=== PATIENT | female | born 1995 | race Caucasian/White ===

== ENCOUNTER 2019-05-24 02:30 | Inpatient (IN) | payer BC ==
[2019-05-24] MEDS ORDERED: Albuterol/Ipratropium 3.0-0.5 MG/3 ML Neb Soln NEB ONE (02:40)
[2019-05-24] MEDS ORDERED: Acetaminophen 325 MG Tab PO ONE (02:40)
[2019-05-24] MEDS ORDERED: methylPREDNISolone Sodium Succinate 125 MG/2 ML SDV IVPUSH ONE (02:40)
--- NOTE | 2019-05-24 02:40 | EDM.PDOC ---
ED HPI GENERAL MEDICAL PROBLEM - General Stated Complaint: SHORTNESS OF BREATH Time Seen by Provider: 05/24/19 02:38 Source of Information: Reports: Patient History Limitations: Reports: No Limitations - History of Present Illness INITIAL COMMENTS - FREE TEXT/NARRATIVE: ED with c/o SOB, wheeze and body aches worsening throughout day. Hx asthma. Has been out of advair for one month, Attempting to get refeills and apptointment with her specialist and "not able" Frequent use of inhaler today, helped in am but worsened after going to bed. - Related Data Allergies Allergy/AdvReac Type Severity Reaction Status Date / Time escitalopram [From Lexapro] Allergy Hives Verified 05/24/19 03:14 environmental Allergy Severe Shortness Uncoded 05/24/19 03:14 of Breath Home Meds: Home Meds Albuterol [IJD: Albuterol] 2.5 mg NEB Q4HRRT nebule 11/23/15 [Rx] EPINEPHrine [Primatene Mist] 2 puff INH ASDIRECTED 05/24/19 [History] Past Medical History Respiratory History: Reports: Asthma Social & Family History - Family History Family Medical History: Unobtainable Respiratory: Reports: Asthma - Caffeine Use Caffeine Use: Reports: Coffee, Energy Drinks, Soda - Living Situation & Occupation Living situation: Reports: with Family Occupation: Employed ED ROS GENERAL - Review of Systems Review Of Systems: See Below Constitutional: Reports: Fever, Chills HEENT: Reports: Sinus Problem. Denies: Throat Pain Respiratory: Reports: Shortness of Breath, Wheezing, Cough Cardiovascular: Reports: No Symptoms GI/Abdominal: Reports: No Symptoms Musculoskeletal: Reports: No Symptoms Skin: Reports: No Symptoms Neurological: Reports: No Symptoms ED EXAM, GENERAL - Physical Exam Exam: See Below Exam Limited By: No Limitations General Appearance: Alert, Moderate Distress Eye Exam: Bilateral Eye: EOMI Ears: Normal External Exam Nose: Normal Mucosa Throat/Mouth: Normal Inspection, Normal Lips, Normal Voice Respiratory/Chest: Decreased Breath Sounds, Wheezing (bilateral inspiratory expiratory) Cardiovascular: Regular Rate, Rhythm, Tachycardia GI/Abdominal: Normal Bowel Sounds Extremities: Normal Inspection Neurological: Alert, Oriented, Normal Cognition Psychiatric: Normal Affect Skin Exam: Warm, Dry, Intact, Normal Color Course - Vital Signs Last Recorded V/S: Last Vital Signs Temp 102.5 F H 05/24/19 03:37 Pulse 157 H 05/24/19 03:37 Resp 18 05/24/19 03:37 BP 129/56 L 05/24/19 03:37 Pulse Ox 93 L 05/24/19 03:37 - Orders/Labs/Meds Orders: Active Orders 24 hr Category Date Time Status Admission Diagnosis [ADT] Stat ADT 05/24/19 03:37 Ordered Admission Status [Patient Status] [ADT] Routine ADT 05/24/19 03:37 Active Cardiac Monitoring [RC] . DIRECTED Care 05/24/19 03:37 Active RT Aerosol Therapy [RC] ASDIRECTED Care 05/24/19 02:41 Active RT Aerosol Therapy [RC] ASDIRECTED Care 05/24/19 03:15 Active RT Aerosol Therapy [RC] ASDIRECTED Care 05/24/19 03:18 Active CULTURE BLOOD [BC] Stat Lab 05/24/19 02:45 Received Oseltamivir [Tamiflu] Med 05/24/19 03:46 Once 75 mg PO ONETIME ONE Potassium Chloride [KCl 10 MEQ in Water 100 ML] 10 meq Med 05/24/19 03:18 Active Premix Bag 1 bag IV ONETIME Sodium Chloride 0.9% [Normal Saline] 1,000 ml Med 05/24/19 03:18 Active IV .BOLUS Blood Culture x2 Reflex Set [OM.PC] Stat Oth 05/24/19 02:41 Ordered Medication Orders Potassium Chloride 10 meq/ (Premix) 100 mls @ 100 mls/hr IV ONETIME ONE Stop: 05/24/19 04:17 Last Admin: 05/24/19 03:28 Dose: 100 mls/hr Sodium Chloride (Normal Saline) 1,000 mls @ 125 mls/hr IV .BOLUS ONE Stop: 05/24/19 11:17 Last Admin: 05/24/19 03:35 Dose: 125 mls/hr Oseltamivir Phosphate (Tamiflu) 75 mg PO ONETIME ONE Stop: 05/24/19 03:47 Labs: Laboratory Tests 05/24/19 05/24/19 05/24/19 Range/Units 02:45 02:45 02:45 WBC 7.8 (5.0-10.0) 10^3/uL RBC 4.64 (4.2-5.4) 10^6/uL Hgb 14.2 (12.0-16.0) g/dL Hct 40.8 (37.0-47.0) % MCV 87.9 D (80-100) fL MCH 30.6 (27.0-34.0) pg MCHC 34.8 (33.0-35.0) g/dL Plt Count 224 (150-450) 10^3/uL Neut % (Auto) 86.4 H (42.2-75.2) % Lymph % (Auto) 6.6 L (20.5-50.1) % [place] % (Auto) 6.3 (2-8) % Eos % (Auto) 0.6 L (1.0-3.0) % Baso % (Auto) 0.1 (0.0-1.0) % Sodium 136 (135-145) mmol/L Potassium 3.2 L (3.6-5.0) mmol/L Chloride 102 (101-111) mmol/L Carbon Dioxide 23.0 (21.0-31.0) mmol/L Anion Gap 14.2 BUN 8 (7-18) mg/dL Creatinine 0.8 (0.6-1.3) mg/dL Est Cr Clr Drug Dosing 98.41 mL/min Estimated GFR (MDRD) > 60 BUN/Creatinine Ratio 10.00 Glucose 94 (74-105) mg/dL Lactic Acid 1.5 (0.5-2.2) mmol/L Calcium 9.1 (8.4-10.2) mg/dl Total Bilirubin 0.3 (0.2-1.0) mg/dL AST 58 H (10-42) IU/L ALT 70 H (10-60) IU/L Alkaline Phosphatase 65 (42-121) IU/L C-Reactive Protein (0.0-1.3) mg/dL Total Protein 7.4 (6.7-8.2) g/dl Albumin 4.4 (3.2-5.5) g/dl Globulin 3.0 Albumin/Globulin Ratio 1.47 HCG, Qual Negative 05/24/19 Range/Units 02:45 WBC (5.0-10.0) 10^3/uL RBC (4.2-5.4) 10^6/uL Hgb (12.0-16.0) g/dL Hct (37.0-47.0) % MCV (80-100) fL MCH (27.0-34.0) pg MCHC (33.0-35.0) g/dL Plt Count (150-450) 10^3/uL Neut % (Auto) (42.2-75.2) % Lymph % (Auto) (20.5-50.1) % [place] % (Auto) (2-8) % Eos % (Auto) (1.0-3.0) % Baso % (Auto) (0.0-1.0) % Sodium (135-145) mmol/L Potassium (3.6-5.0) mmol/L Chloride (101-111) mmol/L Carbon Dioxide (21.0-31.0) mmol/L Anion Gap BUN (7-18) mg/dL Creatinine (0.6-1.3) mg/dL Est Cr Clr Drug Dosing mL/min Estimated GFR (MDRD) BUN/Creatinine Ratio Glucose (74-105) mg/dL Lactic Acid (0.5-2.2) mmol/L Calcium (8.4-10.2) mg/dl Total Bilirubin (0.2-1.0) mg/dL AST (10-42) IU/L ALT (10-60) IU/L Alkaline Phosphatase (42-121) IU/L C-Reactive Protein 1.0 (0.0-1.3) mg/dL Total Protein (6.7-8.2) g/dl Albumin (3.2-5.5) g/dl Globulin Albumin/Globulin Ratio HCG, Qual Meds: Medications Generic Name Dose Route Start Last Admin Trade Name Freq PRN Reason Stop Dose Admin Potassium Chloride 10 meq/ 100 mls @ 100 mls/hr 05/24/19 03:18 05/24/19 03:28 Premix IV 05/24/19 04:17 100 mls/hr ONETIME ONE Administration Sodium Chloride 1,000 mls @ 125 mls/hr 05/24/19 03:18 05/24/19 03:35 Normal Saline IV 05/24/19 11:17 125 mls/hr .BOLUS ONE Administration Oseltamivir Phosphate 75 mg 05/24/19 03:46 Tamiflu PO 05/24/19 03:47 ONETIME ONE Discontinued Medications Generic Name Dose Route Start Last Admin Trade Name Freq PRN Reason Stop Dose Admin Acetaminophen 650 mg 05/24/19 02:40 05/24/19 02:49 Tylenol PO 05/24/19 02:41 650 mg NOW ONE Administration Albuterol 0.63 mg 05/24/19 03:15 05/24/19 03:26 Proventil Neb Soln NEB 05/24/19 03:16 Not Given ONETIME ONE Albuterol 2.5 mg 05/24/19 03:18 05/24/19 03:26 Proventil Neb Soln NEB 05/24/19 03:19 2.5 mg ONETIME ONE Administration Albuterol/Ipratropium 3 ml 05/24/19 02:40 05/24/19 02:47 Duoneb 3.0-0.5 Mg/3 Ml NEB 05/24/19 02:41 3 ml ONETIME ONE Administration Methylprednisolone Sodium Succinate 125 mg 05/24/19 02:40 05/24/19 02:47 Solu-Medrol IVPUSH 05/24/19 02:41 125 mg ONETIME ONE Administration - Re-Assessments/Exams Free Text/Narrative Re-Assessment/Exam: 05/24/19 03:36 Mild relief following initial neb, Required O2/NC to maintain sats greater than 92. Repeat Albuterol neb. TC Dr Claire accepting patient for admission. Departure - Departure Time of Disposition: 03:39 Disposition: Admitted As Inpatient 66 Condition: Good Clinical Impression: Hypoxemia, Influenza B Acute asthma exacerbation Qualifiers: Asthma severity: mild intermittent Qualified Code(s): J45.21 - Mild intermittent asthma with (acute) exacerbation - Discharge Information Forms: ED Department Discharge - My Orders Last 24 Hours: My Active Orders 05/24/19 02:41 RT Aerosol Therapy [RC] ASDIRECTED Blood Culture x2 Reflex Set [OM.PC] Stat 05/24/19 02:45 CULTURE BLOOD [BC] Stat 05/24/19 03:15 RT Aerosol Therapy [RC] ASDIRECTED 05/24/19 03:18 RT Aerosol Therapy [RC] ASDIRECTED Potassium Chloride [KCl 10 MEQ in Water 100 ML] 10 meq Premix Bag 1 bag IV ONETIME Sodium Chloride 0.9% [Normal Saline] 1,000 ml IV .BOLUS 05/24/19 03:37 Admission Diagnosis [ADT] Stat Admission Status [Patient Status] [ADT] Routine Cardiac Monitoring [RC] . DIRECTED 05/24/19 03:46 Oseltamivir [Tamiflu] 75 mg PO ONETIME ONE - Assessment/Plan Last 24 Hours: My Active Orders 05/24/19 02:41 RT Aerosol Therapy [RC] ASDIRECTED Blood Culture x2 Reflex Set [OM.PC] Stat 05/24/19 02:45 CULTURE BLOOD [BC] Stat 05/24/19 03:15 RT Aerosol Therapy [RC] ASDIRECTED 05/24/19 03:18 RT Aerosol Therapy [RC] ASDIRECTED Potassium Chloride [KCl 10 MEQ in Water 100 ML] 10 meq Premix Bag 1 bag IV ONETIME Sodium Chloride 0.9% [Normal Saline] 1,000 ml IV .BOLUS 05/24/19 03:37 Admission Diagnosis [ADT] Stat Admission Status [Patient Status] [ADT] Routine Cardiac Monitoring [RC] . DIRECTED 05/24/19 03:46 Oseltamivir [Tamiflu] 75 mg PO ONETIME ONE
[2019-05-24 03:11] LABS: ANION GAP 14.2; CHLORIDE,CL 102 mmol/L (101-111); SODIUM,NA 136 mmol/L (135-145)
[2019-05-24] MEDS ORDERED: Albuterol 0.021% 0.63 MG/3 ML Neb Soln NEB ONE (03:15)
[2019-05-24] MEDS ORDERED: Sodium Chloride 0.9% 1,000 ML IV ONE (03:18)
[2019-05-24] MEDS ORDERED: Potassium Chloride 10 MEQ in Premix Bag 1 BAG IV ONE (03:18)
[2019-05-24] MEDS ORDERED: Albuterol 0.083% 2.5 MG/3 ML Neb Soln NEB ONE (03:18)
[2019-05-24] MEDS ORDERED: Oseltamivir 75 MG Cap PO ONE (03:46)
[2019-05-24] MEDS ORDERED: Oseltamivir 75 MG Cap ONE (03:52)
[2019-05-24] MEDS ORDERED: Albuterol/Ipratropium 3.0-0.5 MG/3 ML Neb Soln NEB PRN (04:41)
[2019-05-24] MEDS ORDERED: Sodium Chloride 0.9% 10 ML Syringe FLUSH PRN (04:43)
[2019-05-24] MEDS ORDERED: Ondansetron 4 MG Tab.DIS PO PRN (04:43)
--- NOTE | 2019-05-24 04:52 | PCM.HP ---
H&P History of Present Illness - General Date of Service: 05/24/19 Admit Problem/Dx: Admission Diagnosis/Problem Admission Diagnosis/Problem Asthma with acute exacerbation Source of Information: Patient - History of Present Illness Initial Comments - Free Text/Narative: 23-year-old with a history of asthma. The patient ran out of medications about a month ago. She used to use Advair and nebulizers. She says she only used [id number] epinephrine inhaler as needed. Has had exposure to a friend with influenza. On the day of admission developed dry cough, increasing shortness of breath at that the inhalers did not control. Noted to have fever of 103 No rash, no abdominal pain, no leg swelling. Came into the emergency room and she was noted to have significant wheezing. Was treated with aspirin, nebulizers, steroids. She is feeling much better. - Related Data Allergies/Adverse Reactions: Allergies Allergy/AdvReac Type Severity Reaction Status Date / Time escitalopram [From Lexapro] Allergy Hives Verified 05/24/19 03:14 environmental Allergy Severe Shortness Uncoded 05/24/19 03:14 of Breath Home Medications: Home Meds Albuterol [IJD: Albuterol] 2.5 mg NEB Q4HRRT nebule 11/23/15 [Rx] EPINEPHrine [Primatene Mist] 2 puff INH ASDIRECTED 05/24/19 [History] Past Medical History Respiratory History: Reports: Asthma Other Musculoskeletal History: fx ankle. Psychiatric History: Reports: Anxiety, Depression, Panic Attack - Infectious Disease History Infectious Disease History: Reports: Influenza Social & Family History - Family History Family Medical History: Unobtainable Respiratory: Reports: Asthma, Other (See Below) GI: Reports: None Musculoskeletal: Reports: None Neurological: Reports: None Endocrine/Metabolic: Reports: None Hematologic: Reports: None Immunologic: Reports: None Oncologic: Reports: None - Tobacco Use Smoking Status *Q: Never Smoker Second Hand Smoke Exposure: No - Caffeine Use Caffeine Use: Reports: Coffee, Soda - Recreational Drug Use Recreational Drug Use: No - Living Situation & Occupation Living situation: Reports: with Family Occupation: Employed H&P Review of Systems - Review of Systems: Review Of Systems: See Below General: Reports: Fever, Chills Pulmonary: Reports: Shortness of Breath, Wheezing. Denies: Sputum Cardiovascular: Denies: Chest Pain, Edema Gastrointestinal: Denies: Abdominal Pain Genitourinary: Denies: Dysuria Psychiatric: Denies: Confusion Neurological: Denies: Headache, Seizure, Syncope Exam - Exam Exam: See Below - Vital Signs Vital Signs: Last Vital Signs Temp 38.2 C H 05/24/19 04:32 Pulse 141 H 05/24/19 04:32 Resp 24 H 05/24/19 04:32 BP 120/52 L 05/24/19 04:32 Pulse Ox 94 L 05/24/19 04:32 Weight: 84.187 kg - Exam Quality Assessment: Supplemental Oxygen General: Alert, Oriented Neck: Supple Lungs: Wheezing Cardiovascular: Regular Rate, Regular Rhythm GI/Abdominal Exam: Normal Bowel Sounds, Soft, Non-Tender Extremities: No Pedal Edema Skin: Warm, Dry Neurological: Cranial Nerves Intact Neuro Extensive - Mental Status: Alert, Oriented x3, Normal Mood/Affect - Patient Data Lab Results Last 24 hrs: Laboratory Results - last 24 hr 05/24/19 05/24/19 05/24/19 Range/Units 02:45 02:45 02:45 WBC 7.8 (5.0-10.0) 10^3/uL RBC 4.64 (4.2-5.4) 10^6/uL Hgb 14.2 (12.0-16.0) g/dL Hct 40.8 (37.0-47.0) % MCV 87.9 D (80-100) fL MCH 30.6 (27.0-34.0) pg MCHC 34.8 (33.0-35.0) g/dL Plt Count 224 (150-450) 10^3/uL Neut % (Auto) 86.4 H (42.2-75.2) % Lymph % (Auto) 6.6 L (20.5-50.1) % [place] % (Auto) 6.3 (2-8) % Eos % (Auto) 0.6 L (1.0-3.0) % Baso % (Auto) 0.1 (0.0-1.0) % Sodium 136 (135-145) mmol/L Potassium 3.2 L (3.6-5.0) mmol/L Chloride 102 (101-111) mmol/L Carbon Dioxide 23.0 (21.0-31.0) mmol/L Anion Gap 14.2 BUN 8 (7-18) mg/dL Creatinine 0.8 (0.6-1.3) mg/dL Est Cr Clr Drug Dosing 98.41 mL/min Estimated GFR (MDRD) > 60 BUN/Creatinine Ratio 10.00 Glucose 94 (74-105) mg/dL Lactic Acid 1.5 (0.5-2.2) mmol/L Calcium 9.1 (8.4-10.2) mg/dl Total Bilirubin 0.3 (0.2-1.0) mg/dL AST 58 H (10-42) IU/L ALT 70 H (10-60) IU/L Alkaline Phosphatase 65 (42-121) IU/L C-Reactive Protein (0.0-1.3) mg/dL Total Protein 7.4 (6.7-8.2) g/dl Albumin 4.4 (3.2-5.5) g/dl Globulin 3.0 Albumin/Globulin Ratio 1.47 HCG, Qual Negative 05/24/19 Range/Units 02:45 WBC (5.0-10.0) 10^3/uL RBC (4.2-5.4) 10^6/uL Hgb (12.0-16.0) g/dL Hct (37.0-47.0) % MCV (80-100) fL MCH (27.0-34.0) pg MCHC (33.0-35.0) g/dL Plt Count (150-450) 10^3/uL Neut % (Auto) (42.2-75.2) % Lymph % (Auto) (20.5-50.1) % [place] % (Auto) (2-8) % Eos % (Auto) (1.0-3.0) % Baso % (Auto) (0.0-1.0) % Sodium (135-145) mmol/L Potassium (3.6-5.0) mmol/L Chloride (101-111) mmol/L Carbon Dioxide (21.0-31.0) mmol/L Anion Gap BUN (7-18) mg/dL Creatinine (0.6-1.3) mg/dL Est Cr Clr Drug Dosing mL/min Estimated GFR (MDRD) BUN/Creatinine Ratio Glucose (74-105) mg/dL Lactic Acid (0.5-2.2) mmol/L Calcium (8.4-10.2) mg/dl Total Bilirubin (0.2-1.0) mg/dL AST (10-42) IU/L ALT (10-60) IU/L Alkaline Phosphatase (42-121) IU/L C-Reactive Protein 1.0 (0.0-1.3) mg/dL Total Protein (6.7-8.2) g/dl Albumin (3.2-5.5) g/dl Globulin Albumin/Globulin Ratio HCG, Qual Result Diagrams: 05/24/19 02:45 05/24/19 02:45 Yan Results Last 24 hrs: Microbiology 05/24/19 02:45 Influenza Type A Antigen Screen - Final Nasal, Left NEGATIVE INFLUENZA A VIRUS AG REFERENCE RANGE: NEGATIVE Influenza Type B Antigen Screen - Final Positive Influenza B Ag - Problem List (1) Hypokalemia SNOMED Code(s): 13070452 ICD Code: E87.6 - HYPOKALEMIA Status: Acute Current Visit: Yes (2) Acute asthma exacerbation SNOMED Code(s): 479999201 ICD Code: J45.901 - UNSPECIFIED ASTHMA WITH (ACUTE) EXACERBATION Status: Acute Priority: High Current Visit: No Qualifiers: Asthma severity: mild intermittent Qualified Code(s): J45.21 - Mild intermittent asthma with (acute) exacerbation (3) Influenza B SNOMED Code(s): 06266023 ICD Code: J10.1 - FLU DUE TO OTH IDENT INFLUENZA VIRUS W OTH RESP MANIFEST Status: Acute Current Visit: No Problem List Initiated/Reviewed/Updated: Yes Orders Last 24hrs: Active Orders 24 hr Category Date Time Status Admission Diagnosis [ADT] Stat ADT 05/24/19 03:37 Ordered Admission Status [Patient Status] [ADT] Routine ADT 05/24/19 03:37 Active Antiembolic Devices [RC] PER UNIT ROUTINE Care 05/24/19 04:44 Active Oxygen Therapy [RC] PRN Care 05/24/19 04:43 Active Peripheral IV Care [RC] . DIRECTED Care 05/24/19 04:44 Active RT Aerosol Therapy [RC] 01,07,13,18 Care 05/24/19 04:41 Active Up With Assistance [RC] ASDIRECTED Care 05/24/19 04:43 Active VTE/DVT Education [RC] PER UNIT ROUTINE Care 05/24/19 04:43 Active Vital Signs [RC] Q4H Care 05/24/19 04:43 Active Regular Diet [DIET] Diet 05/24/19 Breakfast Active BASIC METABOLIC PANEL,BMP [CHEM] AM Lab 05/25/19 05:15 Ordered CBC WITH AUTO DIFF [HEME] AM Lab 05/25/19 05:15 Ordered CULTURE BLOOD [BC] Stat Lab 05/24/19 02:45 Received CULTURE SPUTUM + SMEAR [RM] Routine Lab 05/24/19 04:41 Ordered Acetaminophen [Tylenol] Med 05/24/19 04:43 Ordered 650 mg PO Q4H PRN Albuterol/Ipratropium [DuoNeb 3.0-0.5 MG/3 ML] Med 05/24/19 04:41 Ordered 3 ml NEB Q2H PRN Albuterol/Ipratropium [DuoNeb 3.0-0.5 MG/3 ML] Med 05/24/19 07:00 Ordered 3 ml NEB Q6HRRT Budesonide [Pulmicort] Med 05/24/19 07:00 Ordered 0.5 mg NEB BIDRT Heparin Sodium Med 05/24/19 06:00 Ordered 5,000 units SUBCUT Q8HR Ondansetron [Zofran ODT] Med 05/24/19 04:43 Ordered 4 mg PO Q4H PRN Oseltamivir [Tamiflu] Med 05/24/19 09:00 Ordered 75 mg PO BID Potassium Chloride [Klor-Con 10] Med 05/24/19 10:00 Once 40 meq PO ONETIME ONE Sodium Chloride 0.9% [Normal Saline] 1,000 ml Med 05/24/19 03:18 Active IV .BOLUS Sodium Chloride 0.9% [Saline Flush] Med 05/24/19 04:43 Ordered 10 ml FLUSH ASDIRECTED PRN Sodium Chloride 0.9% with KCl 20 mEq @ 125 mL/Hr (1000 Med 05/24/19 05:00 Ordered mL) NS + KCl 20mEq/L [Normal Saline with 20 mEq KCl] 1,000 ml IV ASDIRECTED Zolpidem [Ambien] Med 05/24/19 04:43 Ordered 5 mg PO BEDTIME PRN methylPREDNISolone Sod Succ [Solu-MEDROL] Med 05/24/19 04:45 Ordered 40 mg IVPUSH Q8H Antiembolic Hose [OM.PC] Per Unit Routine Oth 05/24/19 04:43 Ordered Blood Culture x2 Reflex Set [OM.PC] Stat Oth 05/24/19 02:41 Ordered Peripheral IV Insertion Adult [OM.PC] Routine Oth 05/24/19 04:43 Ordered Resuscitation Status Routine Resus Stat 05/24/19 04:43 Ordered Medication Orders Acetaminophen (Tylenol) 650 mg PO Q4H PRN PRN Reason: Pain (Mild 1-3)/fever Albuterol/Ipratropium (Duoneb 3.0-0.5 Mg/3 Ml) 3 ml NEB Q6HRRT MILLICENT Albuterol/Ipratropium (Duoneb 3.0-0.5 Mg/3 Ml) 3 ml NEB Q2H PRN PRN Reason: sob Budesonide (Pulmicort) 0.5 mg NEB BIDRT MILLICENT Heparin Sodium (Porcine) (Heparin Sodium) 5,000 units SUBCUT Q8HR MILLICENT Sodium Chloride (Normal Saline) 1,000 mls @ 125 mls/hr IV .BOLUS ONE Stop: 05/24/19 11:17 Last Admin: 05/24/19 03:35 Dose: 125 mls/hr Potassium Chloride/Sodium Chloride (Normal Saline With 20 Meq Kcl) 1,000 mls @ 125 mls/hr IV ASDIRECTED MILLICENT Methylprednisolone Sodium Succinate (Solu-Medrol) 40 mg IVPUSH Q8H MILLICENT Ondansetron HCl (Zofran Odt) 4 mg PO Q4H PRN PRN Reason: nausea, able to take PO Oseltamivir Phosphate (Tamiflu) 75 mg PO BID MILLICENT Potassium Chloride (Klor-Con 10) 40 meq PO ONETIME ONE Stop: 05/24/19 10:01 Sodium Chloride (Saline Flush) 10 ml FLUSH ASDIRECTED PRN PRN Reason: Keep Vein Open Zolpidem Tartrate (Ambien) 5 mg PO BEDTIME PRN PRN Reason: Sleep Assessment/Plan Comment:: 23-year-old lady with a history of asthma who ran out of her medications. Had influenza exposure Presented with shortness of breath Acute asthma exacerbation We will treat with IV and inhaled steroids Use scheduled and as needed DuoNeb Acute influenza Start Tamiflu We'll give influenza vaccine on discharge Hypokalemia We'll replace and recheck DVT prophylaxis with subcutaneous heparin
[2019-05-24] MEDS: NS + KCl 20mEq/L 1,000 ML IV SCH ×3 (05:15→21:40)
[2019-05-24] MEDS: Heparin Sodium 5,000 Units/ML Vial SUBCUT SCH ×3 (06:16→21:45)
[2019-05-24] MEDS: methylPREDNISolone Sodium Succinate 40 MG/1 ML SDV IVPUSH SCH ×3 (06:18→21:39)
[2019-05-24] MEDS: Albuterol/Ipratropium 3.0-0.5 MG/3 ML Neb Soln NEB SCH ×3 (07:11→17:44)
[2019-05-24] MEDS: Budesonide 0.5 MG/2 ML Neb Susp NEB SCH ×2 (07:13→17:45)
[2019-05-24] MEDS ORDERED: Potassium Chloride 10 MEQ Tab.ER PO ONE (10:00)
[2019-05-24] MEDS: Acetaminophen 325 MG Tab PO PRN (15:15)
[2019-05-24] MEDS: Oseltamivir 75 MG Cap PO SCH (21:37)
[2019-05-24] MEDS: Zolpidem 5 MG Tab PO PRN (22:38)
[2019-05-25] MEDS: Albuterol/Ipratropium 3.0-0.5 MG/3 ML Neb Soln NEB SCH ×4 (00:15→20:34)
[2019-05-25] MEDS: Acetaminophen 325 MG Tab PO PRN ×2 (00:16→15:14)
[2019-05-25] MEDS: methylPREDNISolone Sodium Succinate 40 MG/1 ML SDV IVPUSH SCH ×3 (05:48→21:46)
[2019-05-25] MEDS: Heparin Sodium 5,000 Units/ML Vial SUBCUT SCH ×3 (05:48→21:46)
[2019-05-25] MEDS: NS + KCl 20mEq/L 1,000 ML IV SCH (05:49)
[2019-05-25 06:56] LABS: ANION GAP 13.4; CHLORIDE,CL 108 mmol/L (101-111); SODIUM,NA 137 mmol/L (135-145)
[2019-05-25] MEDS: Budesonide 0.5 MG/2 ML Neb Susp NEB SCH ×2 (07:25→20:34)
[2019-05-25] MEDS: Oseltamivir 75 MG Cap PO SCH ×2 (09:20→20:33)
--- NOTE | 2019-05-25 10:24 | PCM.PN ---
- General Info Date of Service: 05/25/19 Admission Dx/Problem (Free Text): Admission Diagnosis/Problem Admission Diagnosis/Problem Asthma with acute exacerbation Subjective Update: Shortness of breath is improved. Has episodes of tachycardia after nebulizer, but somewhat jittery. Still on nasal cannula oxygen. She was on 1 L overnight. Continues to have cough, stuffy nose. No diarrhea. No abdominal pain. On and off fever Functional Status: Reports: Pain Controlled - Review of Systems General: Reports: Fever, Weakness Pulmonary: Reports: Shortness of Breath Cardiovascular: Denies: Chest Pain Gastrointestinal: Denies: Abdominal Pain Genitourinary: Denies: Dysuria - Patient Data Vitals - Most Recent: Last Vital Signs Temp 36.9 C 05/25/19 07:46 Pulse 104 H 05/25/19 07:46 Resp 20 05/25/19 07:46 BP 133/82 05/25/19 07:46 Pulse Ox 98 05/25/19 07:46 Weight - Most Recent: 84.187 kg I&O - Last 24 Hours: Intake & Output 05/24/19 05/25/19 05/25/19 22:59 06:59 14:59 Intake Total 1174 1600 460 Output Total 600 500 Balance 1174 1000 -40 Lab Results Last 24 Hours: Laboratory Results - last 24 hr 05/25/19 05/25/19 Range/Units 06:10 06:10 WBC 7.3 (5.0-10.0) 10^3/uL RBC 4.29 (4.2-5.4) 10^6/uL Hgb 12.9 (12.0-16.0) g/dL Hct 38.5 (37.0-47.0) % MCV 89.7 (80-100) fL MCH 30.1 (27.0-34.0) pg MCHC 33.5 (33.0-35.0) g/dL Plt Count 241 (150-450) 10^3/uL Neut % (Auto) 83.5 H (42.2-75.2) % Lymph % (Auto) 7.4 L (20.5-50.1) % [place] % (Auto) 9.0 H (2-8) % Eos % (Auto) 0.0 L (1.0-3.0) % Baso % (Auto) 0.1 (0.0-1.0) % Sodium 137 (135-145) mmol/L Potassium 4.4 (3.6-5.0) mmol/L Chloride 108 (101-111) mmol/L Carbon Dioxide 20.0 L (21.0-31.0) mmol/L Anion Gap 13.4 BUN 8 (7-18) mg/dL Creatinine 0.8 (0.6-1.3) mg/dL Est Cr Clr Drug Dosing 98.41 mL/min Estimated GFR (MDRD) > 60 Glucose 125 H (74-105) mg/dL Calcium 8.9 (8.4-10.2) mg/dl Yan Results Last 24 Hours: Microbiology 05/24/19 02:45 Aerobic Blood Culture - Preliminary Blood - Venous NO GROWTH AFTER 1 DAY Anaerobic Blood Culture - Preliminary NO GROWTH AFTER 1 DAY 05/25/19 00:29 Gram Stain - Final Sputum - Expectorated Med Orders - Current: Current Medications Acetaminophen (Tylenol) 650 mg PO Q4H PRN PRN Reason: Pain (Mild 1-3)/fever Last Admin: 05/25/19 00:16 Dose: 650 mg Albuterol/Ipratropium (Duoneb 3.0-0.5 Mg/3 Ml) 3 ml NEB Q2H PRN PRN Reason: sob Budesonide (Pulmicort) 0.5 mg NEB BIDRT [facility] Last Admin: 05/25/19 07:25 Dose: 0.5 mg Heparin Sodium (Porcine) (Heparin Sodium) 5,000 units SUBCUT Q8HR [facility] Last Admin: 05/25/19 05:48 Dose: 5,000 units Influenza Virus Vaccine (Afluria Quad 2018- (3yr Up)) 60 mcg IM .ONCE ONE Stop: 05/24/19 09:16 Methylprednisolone Sodium Succinate (Solu-Medrol) 40 mg IVPUSH Q8H [facility] Last Admin: 05/25/19 05:48 Dose: 40 mg Ondansetron HCl (Zofran Odt) 4 mg PO Q4H PRN PRN Reason: nausea, able to take PO Oseltamivir Phosphate (Tamiflu) 75 mg PO BID [facility] Last Admin: 05/25/19 09:20 Dose: 75 mg Sodium Chloride (Saline Flush) 10 ml FLUSH ASDIRECTED PRN PRN Reason: Keep Vein Open Zolpidem Tartrate (Ambien) 5 mg PO BEDTIME PRN PRN Reason: Sleep Last Admin: 05/24/19 22:38 Dose: 5 mg Discontinued Medications Acetaminophen (Tylenol) 650 mg PO NOW ONE Stop: 05/24/19 02:41 Last Admin: 05/24/19 02:49 Dose: 650 mg Albuterol (Proventil Neb Soln) 0.63 mg NEB ONETIME ONE Stop: 05/24/19 03:16 Last Admin: 05/24/19 03:26 Dose: Not Given Albuterol (Proventil Neb Soln) 2.5 mg NEB ONETIME ONE Stop: 05/24/19 03:19 Last Admin: 05/24/19 03:26 Dose: 2.5 mg Albuterol/Ipratropium (Duoneb 3.0-0.5 Mg/3 Ml) 3 ml NEB ONETIME ONE Stop: 05/24/19 02:41 Last Admin: 05/24/19 02:47 Dose: 3 ml Albuterol/Ipratropium (Duoneb 3.0-0.5 Mg/3 Ml) 3 ml NEB Q6HRRT [facility] Last Admin: 05/25/19 07:26 Dose: 3 ml Potassium Chloride 10 meq/ (Premix) 100 mls @ 100 mls/hr IV ONETIME ONE Stop: 05/24/19 04:17 Last Infusion: 05/24/19 04:36 Dose: Infused Sodium Chloride (Normal Saline) 1,000 mls @ 125 mls/hr IV .BOLUS ONE Stop: 05/24/19 11:17 Last Admin: 05/24/19 03:35 Dose: 125 mls/hr Potassium Chloride/Sodium Chloride (Normal Saline With 20 Meq Kcl) 1,000 mls @ 125 mls/hr IV ASDIRECTED [facility] Last Infusion: 05/25/19 10:21 Dose: Infused Influenza Virus Vaccine (Pharmacy To Dose - Influenza Vaccine) 1 each IM ONETIME ONE Stop: 05/24/19 05:01 Methylprednisolone Sodium Succinate (Solu-Medrol) 125 mg IVPUSH ONETIME ONE Stop: 05/24/19 02:41 Last Admin: 05/24/19 02:47 Dose: 125 mg Oseltamivir Phosphate (Tamiflu) 75 mg PO ONETIME ONE Stop: 05/24/19 03:47 Last Admin: 05/24/19 03:50 Dose: 75 mg Oseltamivir Phosphate (Tamiflu) Confirm Administered Dose 75 mg .ROUTE .STK-MED ONE Stop: 05/24/19 03:53 Last Admin: 05/24/19 04:03 Dose: Not Given Potassium Chloride (Klor-Con 10) 40 meq PO ONETIME ONE Stop: 05/24/19 10:01 Last Admin: 05/24/19 09:46 Dose: 40 meq - Exam General: Alert, Oriented Neck: Supple Lungs: Wheezing (Mild bilateral) Cardiovascular: Regular Rate, Regular Rhythm GI/Abdominal Exam: Normal Bowel Sounds, Soft, Non-Tender Extremities: No Pedal Edema - Problem List & Annotations (1) Hypokalemia SNOMED Code(s): 14196770 Code(s): E87.6 - HYPOKALEMIA Status: Acute Current Visit: Yes (2) Acute asthma exacerbation SNOMED Code(s): 242441254 Code(s): J45.901 - UNSPECIFIED ASTHMA WITH (ACUTE) EXACERBATION Status: Acute Priority: High Current Visit: No Qualifiers: Asthma severity: mild intermittent Qualified Code(s): J45.21 - Mild intermittent asthma with (acute) exacerbation (3) Influenza B SNOMED Code(s): 82134070 Code(s): J10.1 - FLU DUE TO OTH IDENT INFLUENZA VIRUS W OTH RESP MANIFEST Status: Acute Current Visit: No - Problem List Review Problem List Initiated/Reviewed/Updated: No - My Orders Last 24 Hours: My Active Orders 05/24/19 21:00 Oseltamivir [Tamiflu] 75 mg PO BID 05/25/19 00:29 CULTURE SPUTUM + SMEAR [RM] Routine 05/25/19 14:00 Albuterol/Ipratropium [DuoNeb 3.0-0.5 MG/3 ML] 3 ml NEB TID - Plan Plan:: 23-year-old lady with a history of asthma who ran out of her medications. Had influenza exposure Presented with shortness of breath Acute asthma exacerbation improving We will treat with IV and inhaled steroids cut back on scheduled duoneb cont as needed DuoNeb Acute influenza Started Tamiflu stop IVF We'll give influenza vaccine on discharge Hypokalemia resolved DVT prophylaxis with subcutaneous heparin
[2019-05-25] MEDS: guaiFENesin 100 MG/5 ML Soln 5 ML UD Cup PO PRN ×2 (10:59→17:11)
[2019-05-25] MEDS: Zolpidem 5 MG Tab PO PRN (23:16)
[2019-05-26] MEDS: methylPREDNISolone Sodium Succinate 40 MG/1 ML SDV IVPUSH SCH ×3 (06:14→22:09)
[2019-05-26] MEDS: Heparin Sodium 5,000 Units/ML Vial SUBCUT SCH ×3 (06:16→22:09)
[2019-05-26] MEDS: guaiFENesin 100 MG/5 ML Soln 5 ML UD Cup PO PRN ×2 (06:20→14:54)
[2019-05-26] MEDS: Budesonide 0.5 MG/2 ML Neb Susp NEB SCH ×2 (07:25→20:38)
[2019-05-26] MEDS: Albuterol/Ipratropium 3.0-0.5 MG/3 ML Neb Soln NEB SCH ×3 (07:26→20:37)
[2019-05-26] MEDS: Oseltamivir 75 MG Cap PO SCH ×2 (08:48→20:37)
--- NOTE | 2019-05-26 11:58 | PCM.PN ---
- General Info Date of Service: 05/26/19 Admission Dx/Problem (Free Text): Admission Diagnosis/Problem Admission Diagnosis/Problem Asthma with acute exacerbation Subjective Update: Shortness of breath is improved. Still on nasal cannula oxygen on 1 L/min. Continues to have cough, stuffy nose, wheezing no fever improvement in body aches No diarrhea. No abdominal pain. - Review of Systems General: Reports: Weakness. Denies: Fever Pulmonary: Reports: Shortness of Breath, Wheezing Cardiovascular: Denies: Chest Pain Gastrointestinal: Denies: Abdominal Pain Neurological: Denies: Confusion - Patient Data Vitals - Most Recent: Last Vital Signs Temp 36.5 C 05/26/19 08:00 Pulse 116 H 05/26/19 08:00 Resp 20 05/26/19 08:00 BP 122/75 05/26/19 08:00 Pulse Ox 93 L 05/26/19 08:00 Weight - Most Recent: 84.187 kg I&O - Last 24 Hours: Intake & Output 05/25/19 05/26/19 05/26/19 22:59 06:59 14:59 Intake Total 540 375 0 Output Total 500 600 Balance 40 -225 0 Yan Results Last 24 Hours: Microbiology 05/25/19 00:29 Gram Stain - Final Sputum - Expectorated Sputum Culture - Preliminary NORMAL RESPIRATORY SLY 1 DAY 05/24/19 02:45 Aerobic Blood Culture - Preliminary Blood - Venous NO GROWTH AFTER 2 DAYS Anaerobic Blood Culture - Preliminary NO GROWTH AFTER 2 DAYS Med Orders - Current: Current Medications Acetaminophen (Tylenol) 650 mg PO Q4H PRN PRN Reason: Pain (Mild 1-3)/fever Last Admin: 05/25/19 15:14 Dose: 650 mg Albuterol/Ipratropium (Duoneb 3.0-0.5 Mg/3 Ml) 3 ml NEB Q2H PRN PRN Reason: sob Albuterol/Ipratropium (Duoneb 3.0-0.5 Mg/3 Ml) 3 ml NEB TIDRT [facility] Last Admin: 05/26/19 07:26 Dose: 3 ml Budesonide (Pulmicort) 0.5 mg NEB BID@0700,2100 [facility] Guaifenesin (Robitussin) 100 mg PO Q6H PRN PRN Reason: Cough Last Admin: 05/26/19 06:20 Dose: 100 mg Heparin Sodium (Porcine) (Heparin Sodium) 5,000 units SUBCUT Q8HR [facility] Last Admin: 05/26/19 06:16 Dose: 5,000 units Influenza Virus Vaccine (Afluria Quad 2018- (3yr Up)) 60 mcg IM .ONCE ONE Stop: 05/24/19 09:16 Methylprednisolone Sodium Succinate (Solu-Medrol) 40 mg IVPUSH Q8H [facility] Last Admin: 05/26/19 06:14 Dose: 40 mg Ondansetron HCl (Zofran Odt) 4 mg PO Q4H PRN PRN Reason: nausea, able to take PO Oseltamivir Phosphate (Tamiflu) 75 mg PO BID [facility] Last Admin: 05/26/19 08:48 Dose: 75 mg Sodium Chloride (Saline Flush) 10 ml FLUSH ASDIRECTED PRN PRN Reason: Keep Vein Open Last Admin: 05/25/19 13:40 Dose: 10 ml Zolpidem Tartrate (Ambien) 5 mg PO BEDTIME PRN PRN Reason: Sleep Last Admin: 05/25/19 23:16 Dose: 5 mg Discontinued Medications Acetaminophen (Tylenol) 650 mg PO NOW ONE Stop: 05/24/19 02:41 Last Admin: 05/24/19 02:49 Dose: 650 mg Albuterol (Proventil Neb Soln) 0.63 mg NEB ONETIME ONE Stop: 05/24/19 03:16 Last Admin: 05/24/19 03:26 Dose: Not Given Albuterol (Proventil Neb Soln) 2.5 mg NEB ONETIME ONE Stop: 05/24/19 03:19 Last Admin: 05/24/19 03:26 Dose: 2.5 mg Albuterol/Ipratropium (Duoneb 3.0-0.5 Mg/3 Ml) 3 ml NEB ONETIME ONE Stop: 05/24/19 02:41 Last Admin: 05/24/19 02:47 Dose: 3 ml Albuterol/Ipratropium (Duoneb 3.0-0.5 Mg/3 Ml) 3 ml NEB Q6HRRT [facility] Last Admin: 05/25/19 07:26 Dose: 3 ml Budesonide (Pulmicort) 0.5 mg NEB BIDRT [facility] Last Admin: 05/26/19 07:25 Dose: 0.5 mg Potassium Chloride 10 meq/ (Premix) 100 mls @ 100 mls/hr IV ONETIME ONE Stop: 05/24/19 04:17 Last Infusion: 05/24/19 04:36 Dose: Infused Sodium Chloride (Normal Saline) 1,000 mls @ 125 mls/hr IV .BOLUS ONE Stop: 05/24/19 11:17 Last Admin: 05/24/19 03:35 Dose: 125 mls/hr Potassium Chloride/Sodium Chloride (Normal Saline With 20 Meq Kcl) 1,000 mls @ 125 mls/hr IV ASDIRECTED [facility] Last Infusion: 05/25/19 10:21 Dose: Infused Influenza Virus Vaccine (Pharmacy To Dose - Influenza Vaccine) 1 each IM ONETIME ONE Stop: 05/24/19 05:01 Methylprednisolone Sodium Succinate (Solu-Medrol) 125 mg IVPUSH ONETIME ONE Stop: 05/24/19 02:41 Last Admin: 05/24/19 02:47 Dose: 125 mg Oseltamivir Phosphate (Tamiflu) 75 mg PO ONETIME ONE Stop: 05/24/19 03:47 Last Admin: 05/24/19 03:50 Dose: 75 mg Oseltamivir Phosphate (Tamiflu) Confirm Administered Dose 75 mg .ROUTE .STK-MED ONE Stop: 05/24/19 03:53 Last Admin: 05/24/19 04:03 Dose: Not Given Potassium Chloride (Klor-Con 10) 40 meq PO ONETIME ONE Stop: 05/24/19 10:01 Last Admin: 05/24/19 09:46 Dose: 40 meq - Exam General: Alert, Oriented Neck: Supple Lungs: Normal Respiratory Effort, Wheezing Cardiovascular: Regular Rate, Regular Rhythm GI/Abdominal Exam: Normal Bowel Sounds, Soft, Non-Tender Extremities: No Pedal Edema - Problem List & Annotations (1) Hypokalemia SNOMED Code(s): 86671216 Code(s): E87.6 - HYPOKALEMIA Status: Acute Current Visit: Yes (2) Acute asthma exacerbation SNOMED Code(s): 571700385 Code(s): J45.901 - UNSPECIFIED ASTHMA WITH (ACUTE) EXACERBATION Status: Acute Priority: High Current Visit: No Qualifiers: Asthma severity: mild intermittent Qualified Code(s): J45.21 - Mild intermittent asthma with (acute) exacerbation (3) Influenza B SNOMED Code(s): 43042377 Code(s): J10.1 - FLU DUE TO OTH IDENT INFLUENZA VIRUS W OTH RESP MANIFEST Status: Acute Current Visit: No - Problem List Review Problem List Initiated/Reviewed/Updated: Yes - My Orders Last 24 Hours: My Active Orders 05/25/19 15:00 Albuterol/Ipratropium [DuoNeb 3.0-0.5 MG/3 ML] 3 ml NEB TIDRT 05/26/19 21:00 Budesonide [Pulmicort] 0.5 mg NEB BID@0700,2100 - Plan Plan:: 23-year-old lady with a history of asthma who ran out of her medications. Had influenza exposure Presented with shortness of breath Acute asthma exacerbation with acute hypoxemic respiratory failure improving still on oxygen and wheezing We will treat with IV and inhaled steroids cont scheduled duoneb cont as needed DuoNeb taper oxygen Acute influenza Started Tamiflu We'll give influenza vaccine on discharge Hypokalemia resolved DVT prophylaxis with subcutaneous heparin
--- NOTE | 2019-05-26 12:03 | PCM.PN ---
- General Info Date of Service: 05/26/19 Admission Dx/Problem (Free Text): Admission Diagnosis/Problem Admission Diagnosis/Problem Asthma with acute exacerbation Subjective Update: Shortness of breath is improved. Still on nasal cannula oxygen on 1 L/min. Continues to have cough, stuffy nose, wheezing no fever improvement in body aches No diarrhea. No abdominal pain. - Review of Systems General: Denies: Fever, Weakness Pulmonary: Reports: Shortness of Breath, Wheezing Cardiovascular: Denies: Chest Pain Gastrointestinal: Denies: Abdominal Pain - Patient Data Vitals - Most Recent: Last Vital Signs Temp 36.5 C 05/26/19 08:00 Pulse 116 H 05/26/19 08:00 Resp 20 05/26/19 08:00 BP 122/75 05/26/19 08:00 Pulse Ox 93 L 05/26/19 08:00 Weight - Most Recent: 84.187 kg I&O - Last 24 Hours: Intake & Output 05/25/19 05/26/19 05/26/19 22:59 06:59 14:59 Intake Total 540 375 0 Output Total 500 600 Balance 40 -225 0 Yan Results Last 24 Hours: Microbiology 05/25/19 00:29 Gram Stain - Final Sputum - Expectorated Sputum Culture - Preliminary NORMAL RESPIRATORY SLY 1 DAY 05/24/19 02:45 Aerobic Blood Culture - Preliminary Blood - Venous NO GROWTH AFTER 2 DAYS Anaerobic Blood Culture - Preliminary NO GROWTH AFTER 2 DAYS Med Orders - Current: Current Medications Acetaminophen (Tylenol) 650 mg PO Q4H PRN PRN Reason: Pain (Mild 1-3)/fever Last Admin: 05/25/19 15:14 Dose: 650 mg Albuterol/Ipratropium (Duoneb 3.0-0.5 Mg/3 Ml) 3 ml NEB Q2H PRN PRN Reason: sob Albuterol/Ipratropium (Duoneb 3.0-0.5 Mg/3 Ml) 3 ml NEB TIDRT [facility] Last Admin: 05/26/19 07:26 Dose: 3 ml Budesonide (Pulmicort) 0.5 mg NEB BID@0700,2100 [facility] Guaifenesin (Robitussin) 100 mg PO Q6H PRN PRN Reason: Cough Last Admin: 05/26/19 06:20 Dose: 100 mg Heparin Sodium (Porcine) (Heparin Sodium) 5,000 units SUBCUT Q8HR [facility] Last Admin: 05/26/19 06:16 Dose: 5,000 units Influenza Virus Vaccine (Afluria Quad 2018-20 (3yr Up)) 60 mcg IM .ONCE ONE Stop: 05/24/19 09:16 Methylprednisolone Sodium Succinate (Solu-Medrol) 40 mg IVPUSH Q8H [facility] Last Admin: 05/26/19 06:14 Dose: 40 mg Ondansetron HCl (Zofran Odt) 4 mg PO Q4H PRN PRN Reason: nausea, able to take PO Oseltamivir Phosphate (Tamiflu) 75 mg PO BID [facility] Last Admin: 05/26/19 08:48 Dose: 75 mg Sodium Chloride (Saline Flush) 10 ml FLUSH ASDIRECTED PRN PRN Reason: Keep Vein Open Last Admin: 05/25/19 13:40 Dose: 10 ml Zolpidem Tartrate (Ambien) 5 mg PO BEDTIME PRN PRN Reason: Sleep Last Admin: 05/25/19 23:16 Dose: 5 mg Discontinued Medications Acetaminophen (Tylenol) 650 mg PO NOW ONE Stop: 05/24/19 02:41 Last Admin: 05/24/19 02:49 Dose: 650 mg Albuterol (Proventil Neb Soln) 0.63 mg NEB ONETIME ONE Stop: 05/24/19 03:16 Last Admin: 05/24/19 03:26 Dose: Not Given Albuterol (Proventil Neb Soln) 2.5 mg NEB ONETIME ONE Stop: 05/24/19 03:19 Last Admin: 05/24/19 03:26 Dose: 2.5 mg Albuterol/Ipratropium (Duoneb 3.0-0.5 Mg/3 Ml) 3 ml NEB ONETIME ONE Stop: 05/24/19 02:41 Last Admin: 05/24/19 02:47 Dose: 3 ml Albuterol/Ipratropium (Duoneb 3.0-0.5 Mg/3 Ml) 3 ml NEB Q6HRRT [facility] Last Admin: 05/25/19 07:26 Dose: 3 ml Budesonide (Pulmicort) 0.5 mg NEB BIDRT [facility] Last Admin: 05/26/19 07:25 Dose: 0.5 mg Potassium Chloride 10 meq/ (Premix) 100 mls @ 100 mls/hr IV ONETIME ONE Stop: 05/24/19 04:17 Last Infusion: 05/24/19 04:36 Dose: Infused Sodium Chloride (Normal Saline) 1,000 mls @ 125 mls/hr IV .BOLUS ONE Stop: 05/24/19 11:17 Last Admin: 05/24/19 03:35 Dose: 125 mls/hr Potassium Chloride/Sodium Chloride (Normal Saline With 20 Meq Kcl) 1,000 mls @ 125 mls/hr IV ASDIRECTED [facility] Last Infusion: 05/25/19 10:21 Dose: Infused Influenza Virus Vaccine (Pharmacy To Dose - Influenza Vaccine) 1 each IM ONETIME ONE Stop: 05/24/19 05:01 Methylprednisolone Sodium Succinate (Solu-Medrol) 125 mg IVPUSH ONETIME ONE Stop: 05/24/19 02:41 Last Admin: 05/24/19 02:47 Dose: 125 mg Oseltamivir Phosphate (Tamiflu) 75 mg PO ONETIME ONE Stop: 05/24/19 03:47 Last Admin: 05/24/19 03:50 Dose: 75 mg Oseltamivir Phosphate (Tamiflu) Confirm Administered Dose 75 mg .ROUTE .STK-MED ONE Stop: 05/24/19 03:53 Last Admin: 05/24/19 04:03 Dose: Not Given Potassium Chloride (Klor-Con 10) 40 meq PO ONETIME ONE Stop: 05/24/19 10:01 Last Admin: 05/24/19 09:46 Dose: 40 meq - Problem List & Annotations (1) Hypokalemia SNOMED Code(s): 00937720 Code(s): E87.6 - HYPOKALEMIA Status: Acute Current Visit: Yes (2) Acute asthma exacerbation SNOMED Code(s): 913654994 Code(s): J45.901 - UNSPECIFIED ASTHMA WITH (ACUTE) EXACERBATION Status: Acute Priority: High Current Visit: No Qualifiers: Asthma severity: mild intermittent Qualified Code(s): J45.21 - Mild intermittent asthma with (acute) exacerbation (3) Influenza B SNOMED Code(s): 78803933 Code(s): J10.1 - FLU DUE TO OTH IDENT INFLUENZA VIRUS W OTH RESP MANIFEST Status: Acute Current Visit: No - My Orders Last 24 Hours: My Active Orders 05/25/19 15:00 Albuterol/Ipratropium [DuoNeb 3.0-0.5 MG/3 ML] 3 ml NEB TIDRT 05/26/19 21:00 Budesonide [Pulmicort] 0.5 mg NEB BID@0700,2100 - Plan Plan:: 23-year-old lady with a history of asthma who ran out of her medications. Had influenza exposure Presented with shortness of breath Acute asthma exacerbation with acute hypoxemic respiratory failure improving still on oxygen and wheezing We will treat with IV and inhaled steroids cont scheduled duoneb cont as needed DuoNeb taper oxygen Acute influenza Started Tamiflu We'll give influenza vaccine on discharge Hypokalemia resolved DVT prophylaxis with subcutaneous heparin
[2019-05-27] MEDS: methylPREDNISolone Sodium Succinate 40 MG/1 ML SDV IVPUSH SCH ×2 (06:03→14:57)
[2019-05-27] MEDS: Heparin Sodium 5,000 Units/ML Vial SUBCUT SCH ×2 (06:03→14:56)
[2019-05-27] MEDS: Albuterol/Ipratropium 3.0-0.5 MG/3 ML Neb Soln NEB SCH (07:22)
[2019-05-27] MEDS: Budesonide 0.5 MG/2 ML Neb Susp NEB SCH (07:22)
[2019-05-27] MEDS: Oseltamivir 75 MG Cap PO SCH (08:33)
[2019-05-27] MEDS: guaiFENesin 100 MG/5 ML Soln 5 ML UD Cup PO PRN (08:33)
--- NOTE | 2019-05-27 12:02 | PCM.DCSUM1 ---
Discharge Summary - Hospital Course Free Text/Narrative:: 23-year-old lady with a history of asthma who ran out of her medications. Had influenza exposure Presented with shortness of breath Acute asthma exacerbation with acute hypoxemic respiratory failure resolved not requiring oxygen treated with IV and inhaled steroids, scheduled duoneb, as needed DuoNeb will discharge ton prednisone for 5 more days, resume advair, duoneb and albuterol MDI prn Acute influenza treat with Tamiflu Hypokalemia resolved Diagnosis: Stroke: No - Discharge Data Discharge Date: 05/27/19 Discharge Disposition: Home, Self-Care 01 Condition: Stable - Referral to Home Health Primary Care Physician: PCP None - Discharge Diagnosis/Problem(s) (1) Hypokalemia SNOMED Code(s): 34666289 ICD Code: E87.6 - HYPOKALEMIA Status: Acute Current Visit: Yes (2) Acute asthma exacerbation SNOMED Code(s): 166178503 ICD Code: J45.901 - UNSPECIFIED ASTHMA WITH (ACUTE) EXACERBATION Status: Acute Priority: High Current Visit: No Qualifiers: Asthma severity: mild intermittent Qualified Code(s): J45.21 - Mild intermittent asthma with (acute) exacerbation (3) Influenza B SNOMED Code(s): 23731349 ICD Code: J10.1 - FLU DUE TO OTH IDENT INFLUENZA VIRUS W OTH RESP MANIFEST Status: Acute Current Visit: No - Patient Instructions Diet: Usual Diet as Tolerated Activity: As Tolerated - Discharge Plan *PRESCRIPTION DRUG MONITORING PROGRAM REVIEWED*: Not Applicable *COPY OF PRESCRIPTION DRUG MONITORING REPORT IN PATIENT JOSELO: Not Applicable Prescriptions/Med Rec: Albuterol [Ventolin HFA] 2 puff INH Q4H PRN #1 puff PRN Reason: sob Albuterol/Ipratropium [DuoNeb 3.0-0.5 MG/3 ML] 3 ml NEB Q4H PRN #60 neb PRN Reason: sob, wheezing Fluticasone/Salmeterol [Advair 250-50 Diskus] 1 each IH BID #1 disk.w.dev guaiFENesin [Robitussin] 100 mg PO Q6H PRN #100 cup PRN Reason: Cough Oseltamivir [Tamiflu] 75 mg PO BID #6 cap predniSONE [Prednisone] 20 mg PO DAILY #5 tablet Home Medications: Home Meds EPINEPHrine [Primatene Mist] 2 puff INH ASDIRECTED 05/24/19 [History] Albuterol [Ventolin HFA] 2 puff INH Q4H PRN #1 puff 05/27/19 [Rx] Albuterol/Ipratropium [DuoNeb 3.0-0.5 MG/3 ML] 3 ml NEB Q4H PRN #60 neb [Rx] Fluticasone/Salmeterol [Advair 250-50 Diskus] 1 each IH BID #1 disk.w.dev [Rx] Oseltamivir [Tamiflu] 75 mg PO BID #6 cap 05/27/19 [Rx] guaiFENesin [Robitussin] 100 mg PO Q6H PRN #100 cup 05/27/19 [Rx] predniSONE [Prednisone] 20 mg PO DAILY #5 tablet 05/27/19 [Rx] Oxygen Therapy Mode: Room Air Patient Handouts: Influenza, Adult, [id number], Oseltamivir capsules Referrals: PCP,None [Primary Care Provider] - - Discharge Summary/Plan Comment DC Time >30 min.: No - General Info Date of Service: 05/27/19 - Review of Systems General: Denies: Fever, Weakness Pulmonary: Denies: Shortness of Breath Cardiovascular: Denies: Chest Pain Neurological: Denies: Confusion - Patient Data Vitals - Most Recent: Last Vital Signs Temp 36.9 C 05/27/19 08:35 Pulse 118 H 05/27/19 08:35 Resp 20 05/27/19 08:35 BP 122/66 05/27/19 08:35 Pulse Ox 92 L 05/27/19 08:35 Weight - Most Recent: 84.187 kg I&O - Last 24 hours: Intake & Output 05/26/19 05/27/19 05/27/19 22:59 06:59 14:59 Intake Total 200 240 Balance 200 240 RADHA Results - Last 24 hrs: Microbiology 05/25/19 00:29 Gram Stain - Final Sputum - Expectorated Sputum Culture - Preliminary 05/24/19 02:45 Aerobic Blood Culture - Preliminary Blood - Venous NO GROWTH AFTER 3 DAYS Anaerobic Blood Culture - Preliminary NO GROWTH AFTER 3 DAYS Med Orders - Current: Current Medications Acetaminophen (Tylenol) 650 mg PO Q4H PRN PRN Reason: Pain (Mild 1-3)/fever Last Admin: 05/25/19 15:14 Dose: 650 mg Albuterol/Ipratropium (Duoneb 3.0-0.5 Mg/3 Ml) 3 ml NEB Q2H PRN PRN Reason: sob Albuterol/Ipratropium (Duoneb 3.0-0.5 Mg/3 Ml) 3 ml NEB TIDRT [facility] Last Admin: 05/27/19 07:22 Dose: 3 ml Budesonide (Pulmicort) 0.5 mg NEB BID@0700,2100 [facility] Last Admin: 05/27/19 07:22 Dose: 0.5 mg Guaifenesin (Robitussin) 100 mg PO Q6H PRN PRN Reason: Cough Last Admin: 05/27/19 08:33 Dose: 100 mg Heparin Sodium (Porcine) (Heparin Sodium) 5,000 units SUBCUT Q8HR [facility] Last Admin: 05/27/19 06:03 Dose: 5,000 units Influenza Virus Vaccine (Afluria Quad 2018- (3yr Up)) 60 mcg IM .ONCE ONE Stop: 05/24/19 09:16 Methylprednisolone Sodium Succinate (Solu-Medrol) 40 mg IVPUSH Q8H [facility] Last Admin: 05/27/19 06:03 Dose: 40 mg Ondansetron HCl (Zofran Odt) 4 mg PO Q4H PRN PRN Reason: nausea, able to take PO Oseltamivir Phosphate (Tamiflu) 75 mg PO BID [facility] Last Admin: 05/27/19 08:33 Dose: 75 mg Sodium Chloride (Saline Flush) 10 ml FLUSH ASDIRECTED PRN PRN Reason: Keep Vein Open Last Admin: 05/25/19 13:40 Dose: 10 ml Zolpidem Tartrate (Ambien) 5 mg PO BEDTIME PRN PRN Reason: Sleep Last Admin: 05/25/19 23:16 Dose: 5 mg Discontinued Medications Acetaminophen (Tylenol) 650 mg PO NOW ONE Stop: 05/24/19 02:41 Last Admin: 05/24/19 02:49 Dose: 650 mg Albuterol (Proventil Neb Soln) 0.63 mg NEB ONETIME ONE Stop: 05/24/19 03:16 Last Admin: 05/24/19 03:26 Dose: Not Given Albuterol (Proventil Neb Soln) 2.5 mg NEB ONETIME ONE Stop: 05/24/19 03:19 Last Admin: 05/24/19 03:26 Dose: 2.5 mg Albuterol/Ipratropium (Duoneb 3.0-0.5 Mg/3 Ml) 3 ml NEB ONETIME ONE Stop: 05/24/19 02:41 Last Admin: 05/24/19 02:47 Dose: 3 ml Albuterol/Ipratropium (Duoneb 3.0-0.5 Mg/3 Ml) 3 ml NEB Q6HRRT [facility] Last Admin: 05/25/19 07:26 Dose: 3 ml Budesonide (Pulmicort) 0.5 mg NEB BIDRT [facility] Last Admin: 05/26/19 07:25 Dose: 0.5 mg Potassium Chloride 10 meq/ (Premix) 100 mls @ 100 mls/hr IV ONETIME ONE Stop: 05/24/19 04:17 Last Infusion: 05/24/19 04:36 Dose: Infused Sodium Chloride (Normal Saline) 1,000 mls @ 125 mls/hr IV .BOLUS ONE Stop: 05/24/19 11:17 Last Admin: 05/24/19 03:35 Dose: 125 mls/hr Potassium Chloride/Sodium Chloride (Normal Saline With 20 Meq Kcl) 1,000 mls @ 125 mls/hr IV ASDIRECTED [facility] Last Infusion: 05/25/19 10:21 Dose: Infused Influenza Virus Vaccine (Pharmacy To Dose - Influenza Vaccine) 1 each IM ONETIME ONE Stop: 05/24/19 05:01 Methylprednisolone Sodium Succinate (Solu-Medrol) 125 mg IVPUSH ONETIME ONE Stop: 05/24/19 02:41 Last Admin: 05/24/19 02:47 Dose: 125 mg Oseltamivir Phosphate (Tamiflu) 75 mg PO ONETIME ONE Stop: 05/24/19 03:47 Last Admin: 05/24/19 03:50 Dose: 75 mg Oseltamivir Phosphate (Tamiflu) Confirm Administered Dose 75 mg .ROUTE .STK-MED ONE Stop: 05/24/19 03:53 Last Admin: 05/24/19 04:03 Dose: Not Given Potassium Chloride (Klor-Con 10) 40 meq PO ONETIME ONE Stop: 05/24/19 10:01 Last Admin: 05/24/19 09:46 Dose: 40 meq - Exam Quality Assessment: Denies: Supplemental Oxygen General: Reports: Alert, Oriented Lungs: Reports: Clear to Auscultation, Normal Respiratory Effort. Denies: Wheezing Cardiovascular: Reports: Regular Rate, Regular Rhythm GI/Abdominal Exam: Normal Bowel Sounds, Soft, Non-Tender Extremities: No Pedal Edema
[2019-05-27 12:54] VITALS: BP 121/67; PULSE 98
--- NOTE | 2019-05-28 11:27 | PCM.SN ---
- Free Text/Narrative Note: sputum resulted as Staph aureus called pt's number - not a working phne called father - d/w him - he will notify pt, sent Rx [facility]
== END 2019-05-27 13:35 | disposition home or self-care (01) | DRG 113 ==
LOC: DL.ED 02:30 → DL.MS 03:37 → DL.ED 03:54
PROVIDERS: ADMIT Internal Medicine; ATTEND Internal Medicine
DX: J10.1 Influenza due to other identified influenza virus with other respiratory manifestations (principal); J96.01 Acute respiratory failure with hypoxia; J45.901 Unspecified asthma with (acute) exacerbation; E87.6 Hypokalemia; Z53.29 Procedure and treatment not carried out because of patient's decision for other reasons; Z88.8 Allergy status to other drugs, medicaments and biological substances; Z91.09 Other allergy status, other than to drugs and biological substances; Z79.899 Other long term (current) drug therapy
CPT/HCPCS: 36415; 71045; 80048; 80053; 83605; 84703; 85025; 86140; 87040; 87070; 87077; 87186; 87205; 87804; 94640; 94760; 96374; 99285-25; A9270-GY; J1644; J2920; J2930; J3480; J7030; J7613-GY; J7620-GY

== ENCOUNTER 2022-10-31 15:56 | Emergency (ER) | payer SELFPAY ==
[2022-10-31] MEDS ORDERED: Sodium Chloride 0.9% 1,000 ML IV ONE (16:16)
[2022-10-31] MEDS ORDERED: Iopamidol 612 MG/ML 100 ML Bottle IVPUSH ONE (16:24)
[2022-10-31 16:28] LABS: BASOPHILS PERCENT AUTO 0.4 % (0.0-1.0); HEMATOCRIT 38.7 % (37.0-47.0); HEMOGLOBIN 13.5 g/dL (12.0-16.0); LYMPHOCYTES PERCENT AUTO 36.9 % (20.5-50.1); MEAN CORPUSCULAR HEMOGLOBIN 34.4 pg (27.0-34.0); MEAN CORPUSCULAR HGB CONC 34.9 g/dL (33.0-35.0); MEAN CORPUSCULAR VOLUME 98.5 fL (80-100); MONOCYTES PERCENT AUTO 7.1 % (2-8); NEUTROPHILS PERCENT AUTO 52.6 % (42.2-75.2); PLATELET COUNT,PLT 272 10^3/uL (150-450); RED BLOOD CELL COUNT 3.93 10^6/uL (4.2-5.4); WHITE BLOOD CELL COUNT,WBC 7.7 10^3/uL (5.0-10.0)
[2022-10-31 16:49] LABS: HCG QUALITATIVE,SERUM NEGATIVE (NEGATIVE)
[2022-10-31 16:54] LABS: A/G RATIO 0.9; ALANINE AMINOTRANSFERASE,ALT 57 U/L (14-59); ALBUMIN 3.4 g/dL (3.4-5.0); ALKALINE PHOSPHATASE 102 U/L (46-116); ANION GAP 18.9 mEq/L (7-13); ASPARTATE AMNIOTRANSFERASE,AST 160 U/L (15-37); BILIRUBIN TOTAL 0.6 mg/dL (0.2-1.0); BLOOD UREA NITROGEN,BUN 4 mg/dL (7-18); BUN/CREATININE RATIO 4.6 (No establ ref range); CARBON DIOXIDE,CO2 23 mmol/L (21-32); CHLORIDE,CL 105 mmol/L (98-107); CREATININE 0.87 mg/dL (0.55-1.02); ETHANOL BLOOD MEDICAL 214 mg/dL (0); GLUCOSE RANDOM 131 mg/dL (70-99); POTASSIUM,K 2.9 mmol/L (3.5-5.1); PROTEIN TOTAL,TP 7.2 g/dL (6.4-8.2); PROTHROMBIN TIME 9.9 SEC (9.0-12.0); SODIUM,NA 144 mmol/L (136-145)
[2022-10-31 17:04] LABS: ESTIMATED GFR 94 mL/min (>=60)
[2022-10-31] MEDS ORDERED: Ondansetron 4 MG/2 ML SDV IVPUSH ONE (17:28)
[2022-10-31] MEDS ORDERED: fentaNYL 100 MCG/2 ML SDV IVPUSH ONE (17:29)
[2022-10-31] MEDS ORDERED: Potassium Chloride 10 MEQ Tab.ER PO ONE (17:30)
[2022-10-31] MEDS ORDERED: Take Home: Ondansetron 4 MG Tab.DIS, 5 Tab Pack PO ONE (17:47)
[2022-10-31] MEDS ORDERED: Take Home: Acetaminophen/oxyCODONE 325-5 MG, 5 Tab Pack PO ONE (17:47)
== END 2022-10-31 18:19 | disposition home or self-care (01) ==
LOC: DL.ED 15:56
DX: S42.352A Displaced comminuted fracture of shaft of humerus, left arm, initial encounter for closed fracture (principal); S22.49XA Multiple fractures of ribs, unspecified side, initial encounter for closed fracture; V86.99XA Unspecified occupant of other special all-terrain or other off-road motor vehicle injured in nontraffic accident, initial encounter; F10.920 Alcohol use, unspecified with intoxication, uncomplicated; R16.0 Hepatomegaly, not elsewhere classified; E87.6 Hypokalemia; K63.89 Other specified diseases of intestine; J45.909 Unspecified asthma, uncomplicated; Z79.899 Other long term (current) drug therapy; Z88.8 Allergy status to other drugs, medicaments and biological substances; Z91.048 Other nonmedicinal substance allergy status
CPT/HCPCS: 36415; 70450; 71260; 72125; 73060; 74177; 80053; 80307; 84703; 85025; 85610; 85730; 86850; 86900; 86901; 96361; 96374; 96375; 99284; A9270; J2405; J3010; J7030; Q0162; Q9967

== ENCOUNTER 2023-05-10 02:23 | Emergency (ER) | payer BC ==
[2023-05-10] MEDS ORDERED: Sodium Chloride 0.9% 10 ML Syringe FLUSH PRN (02:59)
[2023-05-10] MEDS: Sodium Chloride 0.9% 1,000 ML IV SCH ×2 (03:03→05:07)
[2023-05-10] MEDS ORDERED: Ondansetron 4 MG/2 ML SDV IVPUSH ONE (03:03)
[2023-05-10 03:06] LABS: BASOPHILS PERCENT AUTO 0.2 % (0.0-1.0); EOSINOPHILS PERCENT AUTO 0.1 % (1.0-3.0); HEMATOCRIT 33.7 % (37.0-47.0); HEMOGLOBIN 11.6 g/dL (12.0-16.0); LYMPHOCYTES PERCENT AUTO 9.1 % (20.5-50.1); MEAN CORPUSCULAR HEMOGLOBIN 35.3 pg (27.0-34.0); MEAN CORPUSCULAR HGB CONC 34.4 g/dL (33.0-35.0); MEAN CORPUSCULAR VOLUME 102.4 fL (80-100); NEUTROPHILS PERCENT AUTO 86.6 % (42.2-75.2); PLATELET COUNT,PLT 301 10^3/uL (150-450); RED BLOOD CELL COUNT 3.29 10^6/uL (4.2-5.4); WHITE BLOOD CELL COUNT,WBC 17.2 10^3/uL (5.0-10.0)
[2023-05-10 03:34] LABS: HCG QUALITATIVE,SERUM NEGATIVE (NEGATIVE)
[2023-05-10 03:39] LABS: ALANINE AMINOTRANSFERASE,ALT 97 U/L (14-59); ALBUMIN 2.5 g/dL (3.4-5.0); ALKALINE PHOSPHATASE 226 U/L (46-116); AMYLASE 64 U/L (25-115); ANION GAP 22.6 mEq/L (7-13); ASPARTATE AMNIOTRANSFERASE,AST 320 U/L (15-37); BILIRUBIN TOTAL 4.4 mg/dL (0.2-1.0); BLOOD UREA NITROGEN,BUN 2 mg/dL (7-18); BUN/CREATININE RATIO 2.7 (No establ ref range); CALCIUM 7.7 mg/dL (8.5-10.1); CARBON DIOXIDE,CO2 23 mmol/L (21-32); CHLORIDE,CL 91 mmol/L (98-107); CREATININE 0.74 mg/dL (0.55-1.02); EST CRCL DRUG DOSING (CG) 102.76 mL/min; ETHANOL BLOOD MEDICAL 24 mg/dL (0); GLUCOSE RANDOM 127 mg/dL (70-99); INR 1.2 (0.9-1.2); LIPASE 179 U/L (16-77); MAGNESIUM 1.1 mg/dL (1.8-2.4); POTASSIUM,K 2.6 mmol/L (3.5-5.1); PROTEIN TOTAL,TP 7.1 g/dL (6.4-8.2); PROTHROMBIN TIME 11.9 SEC (9.0-12.0); SODIUM,NA 134 mmol/L (136-145)
[2023-05-10 03:40] LABS: A/G RATIO 0.54; ESTIMATED GFR 114 mL/min (>=60)
[2023-05-10 04:02] LABS: LACTIC ACID 11.2 mmol/L (0.4-2.0)
[2023-05-10] MEDS ORDERED: Potassium Chloride 10 MEQ Tab.ER PO ONE (04:10)
[2023-05-10] MEDS ORDERED: Piperacillin/Tazobactam 3.375 GM in Sodium Chloride 0.9% 100 ML IV ONE (04:13)
[2023-05-10] MEDS ORDERED: Sodium Chloride 0.9% 1,000 ML IV SCH (04:15)
[2023-05-10] MEDS ORDERED: Iopamidol 612 MG/ML 100 ML Bottle IVPUSH ONE (04:16)
[2023-05-10] MEDS ORDERED: Magnesium Sulfate/Water 2 GM in Premix Bag 1 BAG IV ONE (04:35)
[2023-05-10] MEDS ORDERED: Sodium Chloride 0.9% 0 ML ONE (04:49)
[2023-05-10] MEDS: Potassium Chloride 10 MEQ in Premix Bag 1 BAG IV SCH ×4 (05:08→08:05)
[2023-05-10 05:17] LABS: BILIRUBIN,URINE SMALL (NEGATIVE); COLOR,URINE YELLOW (YELLOW); GLUCOSE,URINE NEGATIVE (NEGATIVE); KETONES,URINE 40 (NEGATIVE); LEUKOCYTE ESTERASE,URINE NEGATIVE (NEGATIVE); NITRITE,URINE POSITIVE (NEGATIVE); OCCULT BLOOD,URINE NEGATIVE (NEGATIVE); PROTEIN,URINE TRACE (NEGATIVE); UROBILINOGEN,URINE >=8.0 mg/dL (0.2-1.0)
[2023-05-10 05:20] LABS: AMPHETAMINES,URINE NEGATIVE (NEGATIVE); BARBITURATES,URINE NEGATIVE (NEGATIVE); BENZODIAZEPINE,URINE NEGATIVE (NEGATIVE); MDMA (ECSTASY), URINE NEGATIVE (NEGATIVE); METHADONE,URINE NEGATIVE (NEGATIVE); METHAMPHETAMINES,URINE NEGATIVE (NEGATIVE); OPIATES,URINE NEGATIVE (NEGATIVE); OXYCODONE,URINE NEGATIVE (NEGATIVE); PHENCYCLIDINE,URINE NEGATIVE (NEGATIVE); TCA,URINE NEGATIVE (NEGATIVE)
[2023-05-10 05:21] VITALS: BP 139/101; PULSE 117
[2023-05-10 05:22] LABS: APPEARANCE,URINE SLIGHTLY CLOUDY (CLEAR)
[2023-05-10 05:24] LABS: BACTERIA,URINE MANY /HPF (0-FEW/HPF); EPITHELIAL CELLS,URINE FEW /HPF (NOT SEEN); MUCUS,URINE FEW /LPF (NOT SEEN); RBC,URINE NOT SEEN /HPF (0-5); WBC,URINE 0-5 /HPF (0-5/HPF)
[2023-05-10] MEDS ORDERED: Sodium Chloride 0.9% 1,000 ML IV ONE (07:14)
[2023-05-10] MEDS ORDERED: MVI, Adult with Vitamin K 10 ML, Folic Acid 1 MG, Thiamine 100 MG in Lactated Ringers 1... IV ONE ×4 (07:14)
[2023-05-10] MEDS ORDERED: Acetaminophen 500 MG Tab PO ONE (07:29)
[2023-05-10 09:38] LABS: BASOPHILS PERCENT AUTO 0.1 % (0.0-1.0); EOSINOPHILS PERCENT AUTO 0.3 % (1.0-3.0); HEMOGLOBIN 10.5 g/dL (12.0-16.0); LYMPHOCYTES PERCENT AUTO 11.5 % (20.5-50.1); MEAN CORPUSCULAR HEMOGLOBIN 35.4 pg (27.0-34.0); MEAN CORPUSCULAR HGB CONC 33.9 g/dL (33.0-35.0); MEAN CORPUSCULAR VOLUME 104.4 fL (80-100); MONOCYTES PERCENT AUTO 4.9 % (2-8); NEUTROPHILS PERCENT AUTO 83.2 % (42.2-75.2); PLATELET COUNT,PLT 209 10^3/uL (150-450); RED BLOOD CELL COUNT 2.97 10^6/uL (4.2-5.4); WHITE BLOOD CELL COUNT,WBC 15.8 10^3/uL (5.0-10.0)
[2023-05-10 09:56] LABS: A/G RATIO 0.54; ALBUMIN 2.1 g/dL (3.4-5.0); ANION GAP 11.3 mEq/L (7-13); BILIRUBIN TOTAL 5.8 mg/dL (0.2-1.0); CALCIUM 6.6 mg/dL (8.5-10.1); MAGNESIUM 1.6 mg/dL (1.8-2.4); POTASSIUM,K 3.3 mmol/L (3.5-5.1)
[2023-05-10 10:10] LABS: BUN/CREATININE RATIO 1.8 (No establ ref range); EST CRCL DRUG DOSING (CG) 133.4 mL/min
[2023-05-10 10:11] LABS: CREATININE 0.57 mg/dL (0.55-1.02)
[2023-05-10 10:13] LABS: LACTIC ACID 2.1 mmol/L (0.4-2.0)
== END 2023-05-10 10:57 | disposition home or self-care (01) ==
LOC: DL.ED 02:23
DX: N39.0 Urinary tract infection, site not specified (principal); E87.6 Hypokalemia; K52.9 Noninfective gastroenteritis and colitis, unspecified; E83.42 Hypomagnesemia; F10.10 Alcohol abuse, uncomplicated; F12.10 Cannabis abuse, uncomplicated; F14.10 Cocaine abuse, uncomplicated; R74.01 Elevation of levels of liver transaminase levels; J45.909 Unspecified asthma, uncomplicated; Z88.8 Allergy status to other drugs, medicaments and biological substances; Z91.048 Other nonmedicinal substance allergy status
CPT/HCPCS: 36415; 74177; 80053; 80305-QW; 80307; 81001; 82150; 83605; 83690; 83735; 84145; 84703; 85025; 85610; 86140; 87040; 87086; 87088; 87186; 96361; 96365; 96367; 96368; 96375; 99284-25; A9270-GY; J2405; J2543; J3370; J3411; J3475; J3480; J3490; J7030; J7050; J7120; Q9967

== ENCOUNTER 2023-07-12 09:07 | Inpatient (IN) | payer BC ==
[2023-07-12] MEDS ORDERED: Albuterol/Ipratropium 3.0-0.5 MG/3 ML Neb Soln ONE ×2 (09:47→09:58)
[2023-07-12 09:48] LABS: BASOPHILS PERCENT AUTO 0.2 % (0.0-1.0); HEMATOCRIT 42.6 % (37.0-47.0); HEMOGLOBIN 14.2 g/dL (12.0-16.0); LYMPHOCYTES PERCENT AUTO 9.3 % (20.5-50.1); MEAN CORPUSCULAR HEMOGLOBIN 30.7 pg (27.0-34.0); MEAN CORPUSCULAR HGB CONC 33.3 g/dL (33.0-35.0); MEAN CORPUSCULAR VOLUME 92.2 fL (80-100); MONOCYTES PERCENT AUTO 3.4 % (2-8); NEUTROPHILS PERCENT AUTO 87.1 % (42.2-75.2); PLATELET COUNT,PLT 412 10^3/uL (150-450); RED BLOOD CELL COUNT 4.62 10^6/uL (4.2-5.4); WHITE BLOOD CELL COUNT,WBC 17.9 10^3/uL (5.0-10.0)
[2023-07-12 10:08] LABS: APPEARANCE,URINE CLEAR (CLEAR); BILIRUBIN,URINE NEGATIVE (NEGATIVE); COLOR,URINE DARK YELLOW (YELLOW); GLUCOSE,URINE NEGATIVE (NEGATIVE); KETONES,URINE TRACE (NEGATIVE); LEUKOCYTE ESTERASE,URINE NEGATIVE (NEGATIVE); NITRITE,URINE NEGATIVE (NEGATIVE); OCCULT BLOOD,URINE NEGATIVE (NEGATIVE); PROTEIN,URINE TRACE (NEGATIVE); UROBILINOGEN,URINE 0.2 mg/dL (0.2-1.0)
[2023-07-12 10:19] LABS: A/G RATIO 0.68; ALBUMIN 3.2 g/dL (3.4-5.0); BILIRUBIN TOTAL 0.4 mg/dL (0.2-1.0); BUN/CREATININE RATIO 9.6 (No establ ref range); CALCIUM 9.4 mg/dL (8.5-10.1); CREATININE 0.94 mg/dL (0.55-1.02); EST CRCL DRUG DOSING (CG) 80.89 mL/min; PROTEIN TOTAL,TP 7.9 g/dL (6.4-8.2)
[2023-07-12 10:29] LABS: EPITHELIAL CELLS,URINE MANY /HPF (NOT SEEN)
[2023-07-12 10:31] LABS: MUCUS,URINE MANY /LPF (NOT SEEN); RBC,URINE 0-5 /HPF (0-5); WBC,URINE 0-5 /HPF (0-5/HPF)
[2023-07-12] MEDS ORDERED: Naloxone 2 MG/2 ML Syringe IVPUSH PRN (11:11)
[2023-07-12] MEDS ORDERED: Metoprolol Tartrate 5 MG/5 ML SDV IVPUSH PRN (11:11)
[2023-07-12] MEDS ORDERED: HYDROmorphone 0.5 MG/0.5 ML Syringe IVPUSH PRN (11:11)
[2023-07-12] MEDS ORDERED: Magnesium Hydroxide 400 MG/5 ML Susp 30 ML Cup PO PRN (11:11)
[2023-07-12] MEDS ORDERED: hydrALAZINE 20 MG/ML SDV IVPUSH PRN (11:11)
[2023-07-12] MEDS ORDERED: Albuterol/Ipratropium 3.0-0.5 MG/3 ML Neb Soln NEB PRN (11:11)
[2023-07-12] MEDS ORDERED: Ondansetron 4 MG/2 ML SDV IVPUSH PRN (11:11)
[2023-07-12] MEDS ORDERED: Sennosides/Docusate Sodium 50-8.6 MG Tab PO PRN (11:11)
[2023-07-12] MEDS ORDERED: Ketorolac 30 MG/ML SDV IVPUSH PRN (11:11)
[2023-07-12] MEDS ORDERED: Polyethylene Glycol 3350 Powder 17 GM Packet PO PRN (11:11)
[2023-07-12] MEDS ORDERED: Temazepam 15 MG Cap PO PRN (11:11)
[2023-07-12] MEDS ORDERED: guaiFENesin/Dextromethorphan 100-10 MG/5 ML Soln 5 ML Cup PO PRN (11:15)
[2023-07-12] MEDS ORDERED: Magnesium Sulfate/Water 2 GM in Premix Bag 1 BAG IV ONE (11:15)
[2023-07-12] MEDS ORDERED: 50% Dextrose in Water 50 ML Syringe IVPUSH PRN (11:16)
[2023-07-12] MEDS ORDERED: Glucagon,Human Recombinant 1 MG Vial IM PRN (11:16)
[2023-07-12] MEDS ORDERED: Pantoprazole 40 MG Vial IVPUSH ONE (11:18)
[2023-07-12] MEDS ORDERED: Azithromycin 500 MG in Sodium Chloride 0.9% 250 ML IV ONE (11:20)
[2023-07-12 11:28] LABS: BARBITURATES,URINE NEGATIVE (NEGATIVE); BENZODIAZEPINE,URINE NEGATIVE (NEGATIVE); MDMA (ECSTASY), URINE NEGATIVE (NEGATIVE); METHADONE,URINE NEGATIVE (NEGATIVE); METHAMPHETAMINES,URINE NEGATIVE (NEGATIVE); OPIATES,URINE NEGATIVE (NEGATIVE); PHENCYCLIDINE,URINE NEGATIVE (NEGATIVE); TCA,URINE NEGATIVE (NEGATIVE)
[2023-07-12 11:29] LABS: AMPHETAMINES,URINE NEGATIVE (NEGATIVE); OXYCODONE,URINE NEGATIVE (NEGATIVE)
[2023-07-12] MEDS ORDERED: Piperacillin/Tazobactam 4.5 GM in Sodium Chloride 0.9% 100 ML IV ONE (11:30)
[2023-07-12] MEDS: methylPREDNISolone Sodium Succinate 125 MG/2 ML SDV IVPUSH SCH ×3 (13:54→23:38)
[2023-07-12] MEDS ORDERED: Pantoprazole 40 MG Vial ONE ×2 (14:03→14:06)
[2023-07-12] MEDS: Insulin Lispro 100 Units/ML 3 ML Vial SUBCUT SCH ×2 (14:14→16:47)
[2023-07-12 14:51] LABS: C-REACTIVE PROTEIN 3.35 ng/dL (<=0.50); MAGNESIUM 1.7 mg/dL (1.8-2.4)
[2023-07-12] MEDS: Albuterol/Ipratropium 3.0-0.5 MG/3 ML Neb Soln NEB SCH ×2 (16:25→17:40)
[2023-07-12] MEDS: Pantoprazole 40 MG Tab.CR PO SCH (16:26)
[2023-07-12] MEDS: Sodium Chloride 0.9% 1,000 ML IV SCH ×2 (16:26→23:25)
[2023-07-12] MEDS: Piperacillin/Tazobactam 4.5 GM in Sodium Chloride 0.9% 100 ML IV SCH ×2 (16:26→23:44)
[2023-07-12] MEDS: Formoterol/Mometasone 100-5 MCG 8.8 GM Inhaler IH SCH ×2 (16:27→17:40)
[2023-07-12 17:59] LABS: CORONAVIRUS COVID-19 NAA NEGATIVE (NEGATIVE); INFLUENZA A NAA NEGATIVE (NEGATIVE); INFLUENZA B NAA NEGATIVE (NEGATIVE); RESPIRATORY SYNCYTIAL VIR NAA NEGATIVE (NEGATIVE)
[2023-07-12] MEDS: Saccharomyces Boulardii (Probiotic) 250 MG Cap PO SCH (21:02)
[2023-07-12] MEDS: QUEtiapine 100 MG Tab PO SCH (21:02)
[2023-07-12] MEDS: busPIRone 15 MG Tab PO SCH (21:02)
[2023-07-13] MEDS ORDERED: Sodium Chloride 0.9% 1,000 ML IV ONE (00:25)
[2023-07-13] MEDS: methylPREDNISolone Sodium Succinate 125 MG/2 ML SDV IVPUSH SCH ×4 (05:14→23:32)
[2023-07-13] MEDS: Pantoprazole 40 MG Tab.CR PO SCH ×2 (05:20→15:16)
[2023-07-13] MEDS: Albuterol/Ipratropium 3.0-0.5 MG/3 ML Neb Soln NEB SCH ×5 (06:30→17:18)
[2023-07-13] MEDS: Formoterol/Mometasone 100-5 MCG 8.8 GM Inhaler IH SCH ×2 (06:33→17:27)
[2023-07-13] MEDS: Tiotropium Bromide 4 GM Inhalation Spray (2.5mcg/1 dose; 10 doses) INH SCH (06:33)
[2023-07-13 06:36] LABS: BASOPHILS PERCENT AUTO 0.1 % (0.0-1.0); HEMATOCRIT 38.8 % (37.0-47.0); HEMOGLOBIN 12.3 g/dL (12.0-16.0); LYMPHOCYTES PERCENT AUTO 6.9 % (20.5-50.1); MEAN CORPUSCULAR HEMOGLOBIN 30.4 pg (27.0-34.0); MEAN CORPUSCULAR HGB CONC 31.7 g/dL (33.0-35.0); MEAN CORPUSCULAR VOLUME 95.8 fL (80-100); MONOCYTES PERCENT AUTO 1.3 % (2-8); NEUTROPHILS PERCENT AUTO 91.7 % (42.2-75.2); PLATELET COUNT,PLT 335 10^3/uL (150-450); RED BLOOD CELL COUNT 4.05 10^6/uL (4.2-5.4); WHITE BLOOD CELL COUNT,WBC 18.6 10^3/uL (5.0-10.0)
[2023-07-13 07:14] LABS: ALBUMIN 2.8 g/dL (3.4-5.0); ANION GAP 14.1 mEq/L (7-13); BILIRUBIN TOTAL 0.3 mg/dL (0.2-1.0); BUN/CREATININE RATIO 11.7 (No establ ref range); C-REACTIVE PROTEIN 1.24 ng/dL (<=0.50); CALCIUM 8.2 mg/dL (8.5-10.1); CREATININE 0.77 mg/dL (0.55-1.02); EST CRCL DRUG DOSING (CG) 98.75 mL/min; MAGNESIUM 1.9 mg/dL (1.8-2.4); POTASSIUM,K 4.1 mmol/L (3.5-5.1); PROTEIN TOTAL,TP 6.8 g/dL (6.4-8.2)
[2023-07-13 07:20] LABS: A/G RATIO 0.7
[2023-07-13] MEDS: Acetaminophen 325 MG Tab PO PRN (07:52)
[2023-07-13] MEDS: Piperacillin/Tazobactam 4.5 GM in Sodium Chloride 0.9% 100 ML IV SCH ×3 (07:52→23:39)
[2023-07-13] MEDS: FLUoxetine 10 MG Cap PO SCH (09:34)
[2023-07-13] MEDS: Saccharomyces Boulardii (Probiotic) 250 MG Cap PO SCH ×2 (09:34→21:18)
[2023-07-13] MEDS: busPIRone 15 MG Tab PO SCH ×2 (09:34→21:18)
[2023-07-13] MEDS: NORETHINDRONE PO SCH (09:35)
[2023-07-13] MEDS: Azithromycin 500 MG in Sodium Chloride 0.9% 250 ML IV SCH (09:35)
[2023-07-13] MEDS: FERROUS FUMARATE PO SCH (09:35)
[2023-07-13] MEDS: Insulin Lispro 100 Units/ML 3 ML Vial SUBCUT SCH ×3 (09:35→17:20)
[2023-07-13] MEDS: ETHINYL ESTRADIOL PO SCH (09:35)
[2023-07-13] MEDS ORDERED: Lactated Ringers 1,000 ML IV ONE (10:33)
[2023-07-13] MEDS ORDERED: Lactated Ringers 1,000 ML IV SCH (21:00)
[2023-07-13] MEDS: QUEtiapine 100 MG Tab PO SCH (21:18)
[2023-07-13] MEDS: Sodium Chloride 0.9% 10 ML Syringe FLUSH PRN (23:32)
[2023-07-14] MEDS: Albuterol/Ipratropium 3.0-0.5 MG/3 ML Neb Soln NEB SCH ×5 (05:07→18:20)
[2023-07-14] MEDS: Formoterol/Mometasone 100-5 MCG 8.8 GM Inhaler IH SCH ×3 (05:08→18:20)
[2023-07-14] MEDS: Tiotropium Bromide 4 GM Inhalation Spray (2.5mcg/1 dose; 10 doses) INH SCH (05:09)
[2023-07-14] MEDS: Pantoprazole 40 MG Tab.CR PO SCH ×2 (05:38→16:27)
[2023-07-14] MEDS: methylPREDNISolone Sodium Succinate 125 MG/2 ML SDV IVPUSH SCH ×3 (05:39→21:49)
[2023-07-14] MEDS: Sodium Chloride 0.9% 10 ML Syringe FLUSH PRN ×3 (05:39→23:36)
[2023-07-14 06:33] LABS: BASOPHILS PERCENT AUTO 0.1 % (0.0-1.0); HEMATOCRIT 36.3 % (37.0-47.0); HEMOGLOBIN 11.6 g/dL (12.0-16.0); LYMPHOCYTES PERCENT AUTO 8.7 % (20.5-50.1); MEAN CORPUSCULAR HEMOGLOBIN 30.3 pg (27.0-34.0); MEAN CORPUSCULAR VOLUME 94.8 fL (80-100); MONOCYTES PERCENT AUTO 3.3 % (2-8); NEUTROPHILS PERCENT AUTO 87.9 % (42.2-75.2); PLATELET COUNT,PLT 335 10^3/uL (150-450); RED BLOOD CELL COUNT 3.83 10^6/uL (4.2-5.4); WHITE BLOOD CELL COUNT,WBC 12.6 10^3/uL (5.0-10.0)
[2023-07-14 07:12] LABS: ALANINE AMINOTRANSFERASE,ALT 38 U/L (14-59); ALBUMIN 2.6 g/dL (3.4-5.0); ALKALINE PHOSPHATASE 62 U/L (46-116); ANION GAP 17.2 mEq/L (7-13); ASPARTATE AMNIOTRANSFERASE,AST 14 U/L (15-37); BILIRUBIN TOTAL 0.2 mg/dL (0.2-1.0); BLOOD UREA NITROGEN,BUN 9 mg/dL (7-18); BUN/CREATININE RATIO 10.6 (No establ ref range); CALCIUM 8.5 mg/dL (8.5-10.1); CARBON DIOXIDE,CO2 21 mmol/L (21-32); CHLORIDE,CL 106 mmol/L (98-107); CREATININE 0.85 mg/dL (0.55-1.02); EST CRCL DRUG DOSING (CG) 89.46 mL/min; GLUCOSE RANDOM 184 mg/dL (70-99); MAGNESIUM 1.7 mg/dL (1.8-2.4); POTASSIUM,K 3.2 mmol/L (3.5-5.1); PROTEIN TOTAL,TP 6.3 g/dL (6.4-8.2); SODIUM,NA 141 mmol/L (136-145)
[2023-07-14 07:18] LABS: C-REACTIVE PROTEIN < 0.50 ng/dL (<=0.50); ESTIMATED GFR 96 mL/min (>=60)
[2023-07-14] MEDS: Piperacillin/Tazobactam 4.5 GM in Sodium Chloride 0.9% 100 ML IV SCH ×3 (08:09→23:35)
[2023-07-14] MEDS: Acetaminophen 325 MG Tab PO PRN (08:09)
[2023-07-14] MEDS: FLUoxetine 10 MG Cap PO SCH (08:10)
[2023-07-14] MEDS: busPIRone 15 MG Tab PO SCH ×2 (08:10→21:47)
[2023-07-14] MEDS: Saccharomyces Boulardii (Probiotic) 250 MG Cap PO SCH ×2 (08:10→21:47)
[2023-07-14] MEDS: Azithromycin 500 MG in Sodium Chloride 0.9% 250 ML IV SCH (08:10)
[2023-07-14] MEDS: FERROUS FUMARATE PO SCH (08:11)
[2023-07-14] MEDS: ETHINYL ESTRADIOL PO SCH (08:11)
[2023-07-14] MEDS: NORETHINDRONE PO SCH (08:11)
[2023-07-14] MEDS ORDERED: Magnesium Sulfate/Water 2 GM in Premix Bag 1 BAG IV ONE (08:23)
[2023-07-14] MEDS: Insulin Lispro 100 Units/ML 3 ML Vial SUBCUT SCH ×3 (08:24→18:00)
[2023-07-14] MEDS ORDERED: Potassium Chloride 10 MEQ Tab.ER PO ONE (11:00)
[2023-07-14] MEDS: Magnesium Oxide 400 MG Tab PO SCH (18:00)
[2023-07-14] MEDS: QUEtiapine 100 MG Tab PO SCH (21:47)
[2023-07-15] MEDS: Albuterol/Ipratropium 3.0-0.5 MG/3 ML Neb Soln NEB SCH ×4 (06:30→17:05)
[2023-07-15] MEDS: Tiotropium Bromide 4 GM Inhalation Spray (2.5mcg/1 dose; 10 doses) INH SCH (06:30)
[2023-07-15] MEDS: Formoterol/Mometasone 100-5 MCG 8.8 GM Inhaler IH SCH ×2 (06:30→17:05)
[2023-07-15] MEDS: Pantoprazole 40 MG Tab.CR PO SCH ×2 (06:39→15:20)
[2023-07-15] MEDS: methylPREDNISolone Sodium Succinate 125 MG/2 ML SDV IVPUSH SCH ×3 (06:40→21:26)
[2023-07-15 06:56] LABS: BASOPHILS PERCENT AUTO 0.1 % (0.0-1.0); HEMATOCRIT 37.6 % (37.0-47.0); HEMOGLOBIN 11.9 g/dL (12.0-16.0); LYMPHOCYTES PERCENT AUTO 14.8 % (20.5-50.1); MEAN CORPUSCULAR HEMOGLOBIN 30.1 pg (27.0-34.0); MEAN CORPUSCULAR HGB CONC 31.6 g/dL (33.0-35.0); MEAN CORPUSCULAR VOLUME 94.9 fL (80-100); MONOCYTES PERCENT AUTO 4.4 % (2-8); NEUTROPHILS PERCENT AUTO 80.7 % (42.2-75.2); PLATELET COUNT,PLT 348 10^3/uL (150-450); RED BLOOD CELL COUNT 3.96 10^6/uL (4.2-5.4); WHITE BLOOD CELL COUNT,WBC 8.9 10^3/uL (5.0-10.0)
[2023-07-15 07:17] LABS: ALANINE AMINOTRANSFERASE,ALT 43 U/L (14-59); ALBUMIN 2.6 g/dL (3.4-5.0); ALKALINE PHOSPHATASE 50 U/L (46-116); ANION GAP 14.1 mEq/L (7-13); ASPARTATE AMNIOTRANSFERASE,AST 20 U/L (15-37); BILIRUBIN TOTAL 0.3 mg/dL (0.2-1.0); BLOOD UREA NITROGEN,BUN 14 mg/dL (7-18); BUN/CREATININE RATIO 19.2 (No establ ref range); CALCIUM 8.3 mg/dL (8.5-10.1); CARBON DIOXIDE,CO2 26 mmol/L (21-32); CHLORIDE,CL 104 mmol/L (98-107); CREATININE 0.73 mg/dL (0.55-1.02); EST CRCL DRUG DOSING (CG) 104.16 mL/min; GLUCOSE RANDOM 110 mg/dL (70-99); POTASSIUM,K 4.1 mmol/L (3.5-5.1); PROTEIN TOTAL,TP 6.2 g/dL (6.4-8.2); SODIUM,NA 140 mmol/L (136-145)
[2023-07-15 07:20] LABS: A/G RATIO 0.72; C-REACTIVE PROTEIN < 0.50 ng/dL (<=0.50); ESTIMATED GFR 116 mL/min (>=60)
[2023-07-15] MEDS: Piperacillin/Tazobactam 4.5 GM in Sodium Chloride 0.9% 100 ML IV SCH ×3 (07:36→23:24)
[2023-07-15] MEDS: Insulin Lispro 100 Units/ML 3 ML Vial SUBCUT SCH ×3 (07:47→16:46)
[2023-07-15] MEDS: Azithromycin 500 MG in Sodium Chloride 0.9% 250 ML IV SCH (08:27)
[2023-07-15] MEDS: Magnesium Oxide 400 MG Tab PO SCH ×2 (08:27→17:00)
[2023-07-15] MEDS: busPIRone 15 MG Tab PO SCH ×2 (08:27→21:24)
[2023-07-15] MEDS: FLUoxetine 10 MG Cap PO SCH (08:27)
[2023-07-15] MEDS: Saccharomyces Boulardii (Probiotic) 250 MG Cap PO SCH ×2 (08:27→21:24)
[2023-07-15] MEDS: FERROUS FUMARATE PO SCH (08:29)
[2023-07-15] MEDS: NORETHINDRONE PO SCH (08:29)
[2023-07-15] MEDS: ETHINYL ESTRADIOL PO SCH (08:29)
[2023-07-15] MEDS: QUEtiapine 100 MG Tab PO SCH (21:24)
[2023-07-15] MEDS: Sodium Chloride 0.9% 10 ML Syringe FLUSH PRN ×2 (21:26→23:24)
[2023-07-16] MEDS: Albuterol/Ipratropium 3.0-0.5 MG/3 ML Neb Soln NEB SCH ×2 (06:05→09:42)
[2023-07-16] MEDS: Tiotropium Bromide 4 GM Inhalation Spray (2.5mcg/1 dose; 10 doses) INH SCH (06:06)
[2023-07-16] MEDS: Formoterol/Mometasone 100-5 MCG 8.8 GM Inhaler IH SCH (06:06)
[2023-07-16 06:24] LABS: BASOPHILS PERCENT AUTO 0.1 % (0.0-1.0); HEMATOCRIT 37.5 % (37.0-47.0); HEMOGLOBIN 12.2 g/dL (12.0-16.0); LYMPHOCYTES PERCENT AUTO 18.6 % (20.5-50.1); MEAN CORPUSCULAR HEMOGLOBIN 30.3 pg (27.0-34.0); MEAN CORPUSCULAR HGB CONC 32.5 g/dL (33.0-35.0); MEAN CORPUSCULAR VOLUME 93.1 fL (80-100); MONOCYTES PERCENT AUTO 6.2 % (2-8); NEUTROPHILS PERCENT AUTO 75.1 % (42.2-75.2); PLATELET COUNT,PLT 342 10^3/uL (150-450); RED BLOOD CELL COUNT 4.03 10^6/uL (4.2-5.4); WHITE BLOOD CELL COUNT,WBC 9.8 10^3/uL (5.0-10.0)
[2023-07-16] MEDS: Pantoprazole 40 MG Tab.CR PO SCH (06:39)
[2023-07-16] MEDS: methylPREDNISolone Sodium Succinate 125 MG/2 ML SDV IVPUSH SCH (06:40)
[2023-07-16] MEDS: Sodium Chloride 0.9% 10 ML Syringe FLUSH PRN (06:40)
[2023-07-16 07:00] LABS: ALANINE AMINOTRANSFERASE,ALT 44 U/L (14-59); ALBUMIN 2.6 g/dL (3.4-5.0); ALKALINE PHOSPHATASE 48 U/L (46-116); ANION GAP 16.8 mEq/L (7-13); ASPARTATE AMNIOTRANSFERASE,AST 18 U/L (15-37); BILIRUBIN TOTAL 0.4 mg/dL (0.2-1.0); BLOOD UREA NITROGEN,BUN 18 mg/dL (7-18); BUN/CREATININE RATIO 21.4 (No establ ref range); CALCIUM 8.5 mg/dL (8.5-10.1); CARBON DIOXIDE,CO2 23 mmol/L (21-32); CHLORIDE,CL 104 mmol/L (98-107); CREATININE 0.84 mg/dL (0.55-1.02); EST CRCL DRUG DOSING (CG) 90.52 mL/min; GLUCOSE RANDOM 121 mg/dL (70-99); MAGNESIUM 2.1 mg/dL (1.8-2.4); POTASSIUM,K 3.8 mmol/L (3.5-5.1); PROTEIN TOTAL,TP 6.3 g/dL (6.4-8.2); SODIUM,NA 140 mmol/L (136-145)
[2023-07-16 07:02] LABS: C-REACTIVE PROTEIN < 0.50 ng/dL (<=0.50); ESTIMATED GFR 98 mL/min (>=60)
[2023-07-16 08:13] VITALS: PULSE 91
[2023-07-16] MEDS: Magnesium Oxide 400 MG Tab PO SCH (08:36)
[2023-07-16] MEDS: busPIRone 15 MG Tab PO SCH (08:36)
[2023-07-16] MEDS: Saccharomyces Boulardii (Probiotic) 250 MG Cap PO SCH (08:36)
[2023-07-16] MEDS: FLUoxetine 10 MG Cap PO SCH (08:36)
[2023-07-16] MEDS: FERROUS FUMARATE PO SCH (09:32)
[2023-07-16] MEDS: NORETHINDRONE PO SCH (09:32)
[2023-07-16] MEDS: ETHINYL ESTRADIOL PO SCH (09:32)
[2023-07-16] MEDS: Piperacillin/Tazobactam 4.5 GM in Sodium Chloride 0.9% 100 ML IV SCH (09:33)
[2023-07-16] MEDS: Insulin Lispro 100 Units/ML 3 ML Vial SUBCUT SCH ×2 (09:52→12:23)
[2023-07-16] MEDS: Azithromycin 500 MG in Sodium Chloride 0.9% 250 ML IV SCH (10:43)
[2023-07-16 13:33] VITALS: BP 139/75
== END 2023-07-16 14:02 | disposition home or self-care (01) | DRG 720 ==
LOC: DL.ED 09:07 → DL.MS 10:30 → DL.ED 10:42 → OBSVTOIN 07-13 14:45
PROVIDERS: ADMIT Internal Medicine; ATTEND Internal Medicine
DX: A41.9 Sepsis, unspecified organism (principal); J96.01 Acute respiratory failure with hypoxia; J18.9 Pneumonia, unspecified organism; F41.9 Anxiety disorder, unspecified; F32.A Depression, unspecified; F17.210 Nicotine dependence, cigarettes, uncomplicated; J45.901 Unspecified asthma with (acute) exacerbation; E87.20 Acidosis, unspecified; E87.6 Hypokalemia; E83.42 Hypomagnesemia; Z11.52 Encounter for screening for COVID-19; Z88.8 Allergy status to other drugs, medicaments and biological substances; Z79.51 Long term (current) use of inhaled steroids; Z79.899 Other long term (current) drug therapy; Z79.2 Long term (current) use of antibiotics; Z87.81 Personal history of (healed) traumatic fracture; Z71.6 Tobacco abuse counseling
CPT/HCPCS: 0241U; 36415; 71045; 71046; 80053; 80305-QW; 81001; 81025; 82947; 83605; 83735; 85025; 86140; 87070; 87205; 94010; 94060; 94640; 94664; 94667; 94668; 94760; 94762; 96361; 96365; 96366; 96367; 96368; 96375; 96376; 99284; 99285; A9270-GY; C9113; G0378; J0456; J1815-GY; J2543; J2930; J3475; J3490; J7030; J7050; J7120; J7620-GY

== ENCOUNTER 2023-10-19 07:11 | Observation (INO) | payer BC ==
[2023-10-19] MEDS: Albuterol/Ipratropium 3.0-0.5 MG/3 ML Neb Soln NEB ONE (07:24)
[2023-10-19] MEDS: Magnesium Sulfate/Water 2 GM in Premix Bag 1 BAG IV ONE ×2 (07:25→07:40)
[2023-10-19] MEDS: Albuterol/Ipratropium 3.0-0.5 MG/3 ML Neb Soln ONE (07:34)
[2023-10-19] MEDS: Albuterol 0.083% 2.5 MG/3 ML Neb Soln NEB ONE (07:35)
[2023-10-19 07:36] LABS: BASOPHILS PERCENT AUTO 0.4 % (0.0-1.0); EOSINOPHILS PERCENT AUTO 5.1 % (1.0-3.0); HEMATOCRIT 41.2 % (37.0-47.0); HEMOGLOBIN 13.7 g/dL (12.0-16.0); LYMPHOCYTES PERCENT AUTO 21.7 % (20.5-50.1); MEAN CORPUSCULAR HEMOGLOBIN 27.6 pg (27.0-34.0); MEAN CORPUSCULAR HGB CONC 33.3 g/dL (33.0-35.0); MEAN CORPUSCULAR VOLUME 82.9 fL (80-100); MONOCYTES PERCENT AUTO 5.3 % (2-8); NEUTROPHILS PERCENT AUTO 67.5 % (42.2-75.2); PLATELET COUNT,PLT 343 10^3/uL (150-450); RED BLOOD CELL COUNT 4.97 10^6/uL (4.2-5.4); WHITE BLOOD CELL COUNT,WBC 12.2 10^3/uL (5.0-10.0)
[2023-10-19] MEDS: Sodium Chloride 0.9% 10 ML Syringe FLUSH PRN (07:52)
[2023-10-19] MEDS: methylPREDNISolone Sodium Succinate 125 MG/2 ML SDV IVPUSH ONE (07:52)
[2023-10-19] MEDS: Sodium Chloride 0.9% 1,000 ML IV ONE ×3 (07:52→10:46)
[2023-10-19] MEDS: Magnesium Sulfate/Water 50 ML ONE ×2 (07:56)
[2023-10-19 07:59] LABS: CHLORIDE,CL 104 mmol/L (98-107)
[2023-10-19 08:12] LABS: ALANINE AMINOTRANSFERASE,ALT 21 U/L (14-59); ALBUMIN 3.2 g/dL (3.4-5.0); ALKALINE PHOSPHATASE 83 U/L (46-116); ANION GAP 19.1 mEq/L (7-13); ASPARTATE AMNIOTRANSFERASE,AST 15 U/L (15-37); BILIRUBIN TOTAL 0.3 mg/dL (0.2-1.0); BLOOD UREA NITROGEN,BUN 7 mg/dL (7-18); BUN/CREATININE RATIO 8.6 (No establ ref range); C-REACTIVE PROTEIN 3.53 ng/dL (<=0.50); CALCIUM 8.7 mg/dL (8.5-10.1); CARBON DIOXIDE,CO2 20 mmol/L (21-32); CREATININE 0.81 mg/dL (0.55-1.02); EST CRCL DRUG DOSING (CG) 93.05 mL/min; GLUCOSE RANDOM 114 mg/dL (70-99); POTASSIUM,K 4.1 mmol/L (3.5-5.1); PROTEIN TOTAL,TP 7.7 g/dL (6.4-8.2); SODIUM,NA 139 mmol/L (136-145)
[2023-10-19 08:13] LABS: A/G RATIO 0.71; ESTIMATED GFR 101 mL/min (>=60)
[2023-10-19 08:15] LABS: LACTIC ACID 1.2 mmol/L (0.4-2.0)
[2023-10-19 08:19] LABS: HCG QUALITATIVE,SERUM NEGATIVE (NEGATIVE)
[2023-10-19] MEDS: Azithromycin 500 MG in Sodium Chloride 0.9% 250 ML IV ONE (08:56)
[2023-10-19 09:02] LABS: CORONAVIRUS COVID-19 NAA NEGATIVE (NEGATIVE); INFLUENZA A NAA NEGATIVE (NEGATIVE); INFLUENZA B NAA NEGATIVE (NEGATIVE); RESPIRATORY SYNCYTIAL VIR NAA NEGATIVE (NEGATIVE)
[2023-10-19] MEDS: cefTRIAXone 2 GM Vial IVPUSH ONE (09:03)
[2023-10-19] MEDS ORDERED: Albuterol/Ipratropium 3.0-0.5 MG/3 ML Neb Soln INH PRN (10:45)
[2023-10-19] MEDS ORDERED: Albuterol 6.7 GM Inhaler INH PRN (10:45)
[2023-10-19] MEDS ORDERED: Docusate Sodium 100 MG Cap PO PRN (10:46)
[2023-10-19] MEDS ORDERED: Acetaminophen 325 MG Tab PO PRN (10:46)
[2023-10-19] MEDS: methylPREDNISolone Sodium Succinate 40 MG/1 ML SDV IVPUSH SCH (11:13)
[2023-10-19] MEDS: Albuterol 0.083% 2.5 MG/3 ML Neb Soln ONE (11:16)
[2023-10-19] MEDS: busPIRone 15 MG Tab PO SCH (13:44)
[2023-10-19] MEDS: Albuterol 6.7 GM Inhaler INH PRN (15:32)
[2023-10-19] MEDS: Formoterol/Mometasone 200-5 MCG 8.8 GM Inhaler IH SCH (19:53)
[2023-10-19] MEDS: QUEtiapine 100 MG Tab PO SCH (19:54)
[2023-10-19] MEDS: Melatonin 3 MG Tab PO PRN (19:55)
[2023-10-20 03:30] VITALS: PULSE 90
[2023-10-20 07:28] VITALS: BP 120/56
[2023-10-20] MEDS: Azithromycin 250 MG Tab PO SCH (08:13)
[2023-10-20] MEDS: FLUoxetine 10 MG Cap PO SCH (08:15)
[2023-10-20] MEDS: Enoxaparin 40 MG/0.4 ML Syringe SUBCUT SCH (08:15)
[2023-10-20] MEDS ORDERED: cefTRIAXone 1 GM Vial IVPUSH SCH (11:00)
== END 2023-10-20 10:23 | disposition home or self-care (01) ==
LOC: DL.ED 07:11 → DL.MS 09:08
PROVIDERS: ADMIT Internal Medicine; ATTEND Internal Medicine
DX: J45.51 Severe persistent asthma with (acute) exacerbation (principal); J45.52 Severe persistent asthma with status asthmaticus; F32.A Depression, unspecified; F41.9 Anxiety disorder, unspecified; Z79.899 Other long term (current) drug therapy; Z88.8 Allergy status to other drugs, medicaments and biological substances
CPT/HCPCS: 0241U; 36415; 71045; 80053; 83605; 84145; 84703; 85025; 86140; 94664; 99223; 99238; 99285; A9270-GY; J0456; J0696; J1650; J2920; J2930; J3475; J3490; J7030; J7050; J7613-GY; J7620-GY

== ENCOUNTER 2024-06-18 05:27 | Emergency (ER) | payer SELFPAY ==
[2024-06-18] MEDS: Albuterol/Ipratropium 3.0-0.5 MG/3 ML Neb Soln NEB ONE ×3 (05:37→07:19)
[2024-06-18] MEDS: methylPREDNISolone Sodium Succinate 125 MG/2 ML SDV IVPUSH ONE (05:42)
[2024-06-18] MEDS: Magnesium Sulfate/Water Premix 2 GM in Premix Bag 1 BAG IV ONE ×2 (05:45→08:06)
[2024-06-18 05:46] LABS: BASOPHILS PERCENT AUTO 0.2 % (0.0-1.0); EOSINOPHILS PERCENT AUTO 1.4 % (1.0-3.0); HEMATOCRIT 41.6 % (37.0-47.0); LYMPHOCYTES PERCENT AUTO 15.9 % (20.5-50.1); MEAN CORPUSCULAR HEMOGLOBIN 27.2 pg (27.0-34.0); MEAN CORPUSCULAR HGB CONC 33.7 g/dL (33.0-35.0); MEAN CORPUSCULAR VOLUME 80.9 fL (80-100); MONOCYTES PERCENT AUTO 7.3 % (2-8); NEUTROPHILS PERCENT AUTO 75.2 % (42.2-75.2); PLATELET COUNT,PLT 413 10^3/uL (150-450); RED BLOOD CELL COUNT 5.14 10^6/uL (4.2-5.4); WHITE BLOOD CELL COUNT,WBC 13.8 10^3/uL (5.0-10.0)
[2024-06-18 06:02] LABS: O2 DELIVERY DEVICE NASAL CANNULA
[2024-06-18 06:05] LABS: O2 SATURATION VENOUS 87.6 % (60-80); PCO2 VENOUS 43 mmHg (41-51); PH,VENOUS 7.42 (7.31-7.41); PO2 VENOUS 60 mmHg (35-42)
[2024-06-18 06:06] LABS: BASE EXCESS VENOUS 3.1 mmol/l ((-2)-(+3)); BICARBONATE,VENOUS 28 mmol/l (19-25)
[2024-06-18] MEDS: cefTRIAXone 1 GM Vial IVPUSH ONE (06:16)
[2024-06-18 06:18] LABS: ALANINE AMINOTRANSFERASE,ALT 21 U/L (14-59); ALBUMIN 3.6 g/dL (3.4-5.0); ALKALINE PHOSPHATASE 85 U/L (46-116); ANION GAP 15.7 mEq/L (7-13); ASPARTATE AMNIOTRANSFERASE,AST 16 U/L (15-37); BILIRUBIN TOTAL 0.3 mg/dL (0.2-1.0); BLOOD UREA NITROGEN,BUN 8 mg/dL (7-18); BUN/CREATININE RATIO 9.9 (No establ ref range); CARBON DIOXIDE,CO2 27 mmol/L (21-32); CHLORIDE,CL 99 mmol/L (98-107); CREATININE 0.81 mg/dL (0.55-1.02); EST CRCL DRUG DOSING (CG) 93.05 mL/min; GLUCOSE RANDOM 118 mg/dL (70-99); MAGNESIUM 1.8 mg/dL (1.8-2.4); POTASSIUM,K 2.7 mmol/L (3.5-5.1); PROTEIN TOTAL,TP 7.1 g/dL (6.4-8.2); SODIUM,NA 139 mmol/L (136-145)
[2024-06-18] MEDS: Sodium Chloride 0.9% 1,000 ML IV ONE ×2 (06:19→09:21)
[2024-06-18 06:23] LABS: ESTIMATED GFR 101 mL/min (>=60)
[2024-06-18 06:24] LABS: LACTIC ACID 2.7 mmol/L (0.4-2.0)
[2024-06-18] MEDS ORDERED: Potassium Chloride 20 MEQ in Premix Bag 1 BAG IV ONE (06:36)
[2024-06-18] MEDS: Potassium Chloride 10 MEQ Tab.ER PO ONE (06:49)
[2024-06-18] MEDS: Potassium Chloride 20 MEQ in Premix Bag 1 BAG IV SCH (06:51)
[2024-06-18] MEDS: Potassium Chloride 10 MEQ Tab.ER ONE (07:20)
[2024-06-18 07:47] LABS: O2 DELIVERY DEVICE HI FLOW NASAL CANNU
[2024-06-18 07:50] LABS: BICARBONATE,VENOUS 24 mmol/l (19-25); O2 SATURATION VENOUS 90.9 % (60-80); PCO2 VENOUS 45 mmHg (41-51); PH,VENOUS 7.35 (7.31-7.41); PO2 VENOUS 70 mmHg (35-42)
[2024-06-18] MEDS: Morphine 2 MG/ML SYRINGE IVPUSH ONE (08:01)
[2024-06-18] MEDS: Albuterol 0.083% 2.5 MG/3 ML Neb Soln NEB ONE (08:16)
[2024-06-18 08:27] VITALS: BP 128/78; PULSE 124
[2024-06-18] MEDS: Sodium Chloride 0.9% 500 ML IV ONE (09:23)
[2024-06-18] MEDS: Potassium Chloride 20 MEQ in Premix Bag 1 BAG IV ONE (09:23)
== END 2024-06-18 09:20 ==
LOC: DL.ED 05:27
DX: A41.9 Sepsis, unspecified organism (principal); J45.51 Severe persistent asthma with (acute) exacerbation; E87.6 Hypokalemia; Z88.8 Allergy status to other drugs, medicaments and biological substances; Z91.048 Other nonmedicinal substance allergy status; Z79.51 Long term (current) use of inhaled steroids; Z79.52 Long term (current) use of systemic steroids; Z79.899 Other long term (current) drug therapy
CPT/HCPCS: 36415; 71045; 80053; 82803; 83605; 83735; 83880; 84484; 85025; 87040; 87428; 93005; 94660; 94762; 96365; 96366; 96368; 96375; 96376; 99285; A9270; J0696; J2270; J2919; J3475; J3480; J7030; J7613-GY; J7620-GY

== ENCOUNTER 2024-12-13 20:26 | Inpatient (IN) | payer BC ==
[2024-12-13] MEDS ORDERED: Sodium Chloride 0.9% 10 ML Syringe FLUSH PRN (20:29)
[2024-12-13] MEDS: Albuterol/Ipratropium 3.0-0.5 MG/3 ML Neb Soln NEB ONE (20:35)
[2024-12-13] MEDS: methylPREDNISolone Sodium Succinate 125 MG/2 ML SDV IVPUSH ONE (20:44)
[2024-12-13] MEDS: Magnesium Sulfate 4 GM/100 mL 4 GM in Premix Bag 1 BAG IV ONE (20:44)
[2024-12-13] MEDS: Albuterol/Ipratropium 3.0-0.5 MG/3 ML Neb Soln ONE (20:45)
[2024-12-13] MEDS: methylPREDNISolone Sodium Succinate 125 MG/2 ML SDV ONE (20:45)
[2024-12-13 20:46] LABS: BASOPHILS PERCENT AUTO 0.6 % (0.0-1.0); EOSINOPHILS PERCENT AUTO 9.7 % (1.0-3.0); HEMATOCRIT 41.3 % (37.0-47.0); HEMOGLOBIN 13.9 g/dL (12.0-16.0); LYMPHOCYTES PERCENT AUTO 30.6 % (20.5-50.1); MEAN CORPUSCULAR HEMOGLOBIN 26.5 pg (27.0-34.0); MEAN CORPUSCULAR HGB CONC 33.7 g/dL (33.0-35.0); MEAN CORPUSCULAR VOLUME 78.8 fL (80-100); NEUTROPHILS PERCENT AUTO 52.1 % (42.2-75.2); PLATELET COUNT,PLT 305 10^3/uL (150-450); RED BLOOD CELL COUNT 5.24 10^6/uL (4.2-5.4); WHITE BLOOD CELL COUNT,WBC 8.5 10^3/uL (5.0-10.0)
[2024-12-13 21:06] LABS: INR 0.9 (0.9-1.2); PROTHROMBIN TIME 9.8 SEC (9.0-12.0); PTT,PARTIAL THROMBOPLSTIN TIME 30.6 SEC (22.0-34.0)
[2024-12-13 21:09] LABS: A/G RATIO 0.8; ALANINE AMINOTRANSFERASE,ALT 18 U/L (14-59); ALBUMIN 3.5 g/dL (3.4-5.0); ALKALINE PHOSPHATASE 79 U/L (46-116); ANION GAP 16.9 mEq/L (7-13); ASPARTATE AMNIOTRANSFERASE,AST 11 U/L (15-37); BILIRUBIN TOTAL 0.9 mg/dL (0.2-1.0); BLOOD UREA NITROGEN,BUN 8 mg/dL (7-18); BUN/CREATININE RATIO 8.9 (No establ ref range); C-REACTIVE PROTEIN 4.52 ng/dL (<=0.50); CALCIUM 9.4 mg/dL (8.5-10.1); CARBON DIOXIDE,CO2 24 mmol/L (21-32); CHLORIDE,CL 105 mmol/L (98-107); GLUCOSE RANDOM 95 mg/dL (70-99); MAGNESIUM 1.8 mg/dL (1.8-2.4); POTASSIUM,K 3.9 mmol/L (3.5-5.1); PROTEIN TOTAL,TP 7.8 g/dL (6.4-8.2); SODIUM,NA 142 mmol/L (136-145)
[2024-12-13 21:10] LABS: ESTIMATED GFR 89 mL/min (>=60); LACTIC ACID 1.2 mmol/L (0.4-2.0)
[2024-12-13] MEDS: Sodium Chloride 0.9% 1,000 ML IV ONE (21:10)
[2024-12-13 21:11] LABS: B-TYPE NATRIURETIC PEPTIDE,BNP 10 pg/ml (0-100)
[2024-12-13] MEDS: Albuterol 6.7 GM Inhaler INH ONE (21:39)
[2024-12-13] MEDS ORDERED: hydrALAZINE 20 MG/ML SDV IVPUSH PRN (22:17)
[2024-12-13] MEDS ORDERED: Diltiazem 25 MG/5 ML SDV IVPUSH PRN (22:18)
[2024-12-13] MEDS ORDERED: Acetaminophen 325 MG Tab PO PRN (22:19)
[2024-12-13] MEDS ORDERED: Magnesium Hydroxide 400 MG/5 ML Susp 30 ML Cup PO PRN (22:19)
[2024-12-13] MEDS ORDERED: Acetaminophen/HYDROcodone 325-5 MG Tab PO PRN (22:19)
[2024-12-13] MEDS ORDERED: HYDROmorphone 0.5 MG/0.5 ML Syringe IVPUSH PRN (22:19)
[2024-12-13] MEDS ORDERED: Polyethylene Glycol 3350 Powder 17 GM Packet PO PRN (22:19)
[2024-12-13] MEDS ORDERED: Ondansetron 4 MG/2 ML SDV IVPUSH PRN (22:19)
[2024-12-13] MEDS ORDERED: Bisacodyl 10 MG Supp RECTAL PRN (22:19)
[2024-12-13] MEDS ORDERED: Sennosides/Docusate Sodium 50-8.6 MG Tab PO PRN (22:19)
[2024-12-13] MEDS ORDERED: Metoclopramide 10 MG/2 ML SDV IV PRN (22:19)
[2024-12-13] MEDS ORDERED: Zolpidem 5 MG Tab PO PRN (22:19)
[2024-12-13] MEDS ORDERED: Naloxone 2 MG/2 ML Syringe IVPUSH PRN (22:22)
[2024-12-13 22:37] LABS: AMPHETAMINES,URINE NEGATIVE (NEGATIVE); BARBITURATES,URINE NEGATIVE (NEGATIVE); BENZODIAZEPINE,URINE NEGATIVE (NEGATIVE); MDMA (ECSTASY), URINE NEGATIVE (NEGATIVE); METHADONE,URINE NEGATIVE (NEGATIVE); METHAMPHETAMINES,URINE NEGATIVE (NEGATIVE); OPIATES,URINE NEGATIVE (NEGATIVE); OXYCODONE,URINE NEGATIVE (NEGATIVE); PHENCYCLIDINE,URINE NEGATIVE (NEGATIVE); TCA,URINE NEGATIVE (NEGATIVE)
[2024-12-13] MEDS ORDERED: 50% Dextrose in Water 50 ML Syringe IVPUSH PRN (23:19)
[2024-12-13] MEDS ORDERED: Glucagon,Human Recombinant 1 MG Vial IM PRN (23:19)
[2024-12-13] MEDS: Montelukast 10 MG Tab PO ONE (23:46)
[2024-12-13] MEDS: cloNIDine 0.1 MG Tab PO ONE (23:46)
[2024-12-13] MEDS: QUEtiapine 100 MG Tab PO ONE (23:46)
[2024-12-13] MEDS: Famotidine 20 MG/2 ML SDV IVPUSH ONE (23:47)
[2024-12-13] MEDS: cefTRIAXone 1 GM Vial IVPUSH ONE (23:47)
[2024-12-13] MEDS: diphenhydrAMINE 50 MG/ML SDV IVPUSH ONE (23:47)
[2024-12-13] MEDS: Codeine/guaiFENesin 10-100 MG/5 ML Syrup 5 ML Cup PO PRN (23:47)
[2024-12-13] MEDS: Azithromycin 500 MG in Sodium Chloride 0.9% 250 ML IV ONE (23:50)
[2024-12-14] MEDS: methylPREDNISolone Sodium Succinate 125 MG/2 ML SDV IVPUSH SCH (05:00)
[2024-12-14 06:20] LABS: BASOPHILS PERCENT AUTO 0.2 % (0.0-1.0); HEMATOCRIT 39.5 % (37.0-47.0); HEMOGLOBIN 12.7 g/dL (12.0-16.0); LYMPHOCYTES PERCENT AUTO 12.7 % (20.5-50.1); MEAN CORPUSCULAR HEMOGLOBIN 25.8 pg (27.0-34.0); MEAN CORPUSCULAR HGB CONC 32.2 g/dL (33.0-35.0); MEAN CORPUSCULAR VOLUME 80.1 fL (80-100); MONOCYTES PERCENT AUTO 1.2 % (2-8); NEUTROPHILS PERCENT AUTO 85.9 % (42.2-75.2); PLATELET COUNT,PLT 280 10^3/uL (150-450); RED BLOOD CELL COUNT 4.93 10^6/uL (4.2-5.4)
[2024-12-14 06:42] LABS: ALBUMIN 3.2 g/dL (3.4-5.0); ANION GAP 18.8 mEq/L (7-13); BILIRUBIN TOTAL 0.4 mg/dL (0.2-1.0); BUN/CREATININE RATIO 9.8 (No establ ref range); CALCIUM 9.1 mg/dL (8.5-10.1); CREATININE 1.02 mg/dL (0.55-1.02); EST CRCL DRUG DOSING (CG) 73.23 mL/min; MAGNESIUM 2.3 mg/dL (1.8-2.4); POTASSIUM,K 3.8 mmol/L (3.5-5.1); PROTEIN TOTAL,TP 7.4 g/dL (6.4-8.2)
[2024-12-14 06:43] LABS: A/G RATIO 0.76
[2024-12-14] MEDS: guaiFENesin 600 MG Tab.ER PO SCH (08:14)
[2024-12-14] MEDS: Enoxaparin 40 MG/0.4 ML Syringe SUBCUT SCH (08:15)
[2024-12-14] MEDS: Insulin Lispro 100 Units/ML 3 ML Vial SUBCUT SCH (08:15)
[2024-12-14] MEDS ORDERED: Nicotine 21 MG/24 Hr Patch TRDERM SCH (09:00)
[2024-12-14] MEDS ORDERED: Albuterol/Ipratropium 3.0-0.5 MG/3 ML Neb Soln NEB PRN (10:54)
[2024-12-14] MEDS: Albuterol/Ipratropium 3.0-0.5 MG/3 ML Neb Soln NEB SCH (12:00)
[2024-12-14] MEDS: cefTRIAXone 1 GM Vial IVPUSH SCH (12:43)
[2024-12-14] MEDS: Azithromycin 500 MG in Sodium Chloride 0.9% 250 ML IV SCH (12:43)
[2024-12-14 17:00] VITALS: BP 128/74
[2024-12-14 17:29] VITALS: PULSE 102
[2024-12-14] MEDS ORDERED: diphenhydrAMINE 25 MG Tab PO SCH (21:00)
[2024-12-14] MEDS ORDERED: Famotidine 20 MG Tab PO SCH (21:00)
[2024-12-14] MEDS ORDERED: Montelukast 10 MG Tab PO SCH (21:00)
[2024-12-14] MEDS ORDERED: QUEtiapine 100 MG Tab PO SCH (21:00)
== END 2024-12-14 17:30 | disposition home or self-care (01) | DRG 141 ==
LOC: DL.ED 20:26 → DL.MS 21:55 → DL.ED 22:05
PROVIDERS: ADMIT Internal Medicine; ATTEND Internal Medicine
DX: J45.51 Severe persistent asthma with (acute) exacerbation (principal); J82.83 Eosinophilic asthma; F41.9 Anxiety disorder, unspecified; F32.A Depression, unspecified; F12.90 Cannabis use, unspecified, uncomplicated; E66.811 Obesity, class 1; R09.02 Hypoxemia; Z88.8 Allergy status to other drugs, medicaments and biological substances; Z79.899 Other long term (current) drug therapy; Z79.51 Long term (current) use of inhaled steroids; Z79.2 Long term (current) use of antibiotics; Z79.52 Long term (current) use of systemic steroids; Z87.891 Personal history of nicotine dependence; Z68.31 Body mass index [BMI] 31.0-31.9, adult
CPT/HCPCS: 36415; 71045; 80053; 80305-QW; 82947; 83605; 83735; 83880; 84484; 84703; 85025; 85379; 85610; 85730; 86140; 87040; 87070; 87077; 87186; 87205; 93005; 93010; 94010; 94640; 94667; 96365; 96375; 99285; 99285-25; A9270-GY; J0456; J0696; J1200; J1650; J1815-GY; J2919; J3475; J7030; J7050

== ENCOUNTER 2025-02-12 02:48 | Emergency (ER) | payer SELFPAY ==
[2025-02-12] MEDS: Magnesium Sulfate 2 GM/50 mL 2 GM in Premix Bag 1 BAG IV ONE (02:57)
[2025-02-12] MEDS: Dexamethasone 4 MG/ML SDV IVPUSH ONE (03:19)
[2025-02-12] MEDS: Albuterol 0.083% 2.5 MG/3 ML Neb Soln NEB ONE ×2 (03:29→03:43)
[2025-02-12 08:00] VITALS: BP 119/82; PULSE 99
== END 2025-02-12 08:10 | disposition home or self-care (01) ==
LOC: DL.ED 02:48
DX: J45.52 Severe persistent asthma with status asthmaticus (principal); Z91.09 Other allergy status, other than to drugs and biological substances; Z88.8 Allergy status to other drugs, medicaments and biological substances; Z79.51 Long term (current) use of inhaled steroids; Z79.899 Other long term (current) drug therapy
CPT/HCPCS: 71045; 94640; 96365; 96375; 99285; J1100; J3475; J3535; J7613; J7620; A9270-GY